=== PATIENT | female | born 1995 | race Caucasian/White ===

== ENCOUNTER 2021-09-12 12:37 | Outpatient (CLI) | payer OTHER, SELFPAY ==
--- NOTE | 2021-09-12 13:00 | CRLHL7_ITS ---
For Patients: As a result of the Century Cures Act, medical imaging exams and procedure reports are released immediately into your electronic medical record. You may view this report before your referring provider. If you have questions, please contact your health care provider. CLINICAL HISTORY: First trimester screening. TECHNIQUE: Real time naqvi scale imaging of the fetus was performed using a transabdominal approach. FINDINGS: Sonographic imaging demonstrates a single living intrauterine gestation. The fetus demonstrates a regular cardiac rate measuring 169 beats per minute. The crown rump length measurement of 7.3 cm corresponds to a gestation of 13 weeks 3 days which is concordant with the earlier dating ultrasound. A nuchal translucency measurement of 1.8 mm was obtained for screening purposes. IMPRESSION: Nuchal translucency measurement obtained for first trimester screen. Dictated by David Gonsalves MD @ 09/12/2021 2:17:17 PM (Electronically Signed)
== END 2021-09-12 12:38 | disposition home or self-care (01) ==
LOC: US 12:38
PROVIDERS: Visit Provider Physician Assistant
DX: Z34.91 Encounter for supervision of normal pregnancy, unspecified, first trimester (principal); Z13.79 Encounter for other screening for genetic and chromosomal anomalies
CPT/HCPCS: 36415; 76801; 76813; 84163; 84702

== ENCOUNTER 2021-11-07 10:00 | Outpatient (CLI) | payer OTHER, SELFPAY ==
--- NOTE | 2021-11-07 10:15 | CRLHL7_ITS ---
For Patients: As a result of the Century Cures Act, medical imaging exams and procedure reports are released immediately into your electronic medical record. You may view this report before your referring provider. If you have questions, please contact your health care provider. INDICATION: 2nd trimester anatomical survey. TECHNIQUE: Ultrasound OB pelvis transabdominal. Real-time naqvi-scale imaging of the fetus was performed as well as color Doppler and spectral Doppler analysis of the umbilical artery. COMPARISON: None. FINDINGS: Sonographic imaging demonstrates a single living intrauterine gestation. Fetus demonstrates a regular cardiac rate of 154 beats per minute. Fetus is in multiple positions during exam. The placenta lies anterior without evidence of placenta previa. Placenta tip to internal os measures 4.6 cm. Three-vessel cord with eccentric placental insertion. The cervix is closed measuring 4.1 cm in length. Amniotic fluid volume appears normal. Single deepest pocket measures 3.3 cm. Biometry: Biparietal diameter: 4.9 cm, 20 week 5 day, 49th percentile. Head circumference: 18.6 cm, 21 weeks 0 day, 52 percentile. Abdominal circumference: 16.4 cm, 21 week 3 day, 69th percentile. Femoral length: 3.7 cm, 21 weeks 6 days, 81st percentile. The composite ultrasound gestational age is calculated at 21 weeks 0 day with an estimated sonographic due date of 03/20/2022. The weight is estimated at 435 grams, the 88th percentile. On anatomic survey, there is a normal appearance of the cerebral ventricles, cisterna magna and cerebellum. The nose, lips, and facial profile appear normal. The cervical, thoracic and lumbar spines are well visualized and appear normal. Unable to obtain optimal heart views due to position and maternal body habitus. diaphragm, stomach, kidneys and bladder appear normal. There is a normal three-vessel cord with eccentric placenta insertion. The four extremities appear normal. IMPRESSION: 1.Single viable intrauterine . 2. Unable to obtain optimal heart views due to position and maternal body habitus. 3.No intrinsic abnormalities noted on anatomic survey. Dictated by Marlon Bernal MD @ 11/07/2021 11:36:50 AM (Electronically Signed)
== END 2021-11-07 10:01 | disposition home or self-care (01) ==
LOC: US 10:01
PROVIDERS: Visit Provider Obstetrics & Gynecology
DX: Z34.92 Encounter for supervision of normal pregnancy, unspecified, second trimester (principal); Z3A.21 21 weeks gestation of pregnancy
CPT/HCPCS: 76805

== ENCOUNTER 2021-12-05 08:54 | Outpatient (CLI) | payer OTHER, SELFPAY ==
--- NOTE | 2021-12-05 09:15 | CRLHL7_ITS ---
For Patients: As a result of the Century Cures Act, medical imaging exams and procedure reports are released immediately into your electronic medical record. You may view this report before your referring provider. If you have questions, please contact your health care provider. INDICATION: HEART VIEWS NOT ADEQUATELY SEEN AT [facility] COMPARISON: 11/07/2021 TECHNIQUE: Real-time naqvi-scale imaging of the pelvis was performed. FINDINGS: Normal RVOT, LVOT, three-vessel view and four-chamber heart. heart rate 148 beats per minute. Placenta anterior. position vertex. Amniotic fluid normal with single deepest pocket 3.9 cm. Estimated weight is 776 grams, 60th percentile. Sonographic gestational age 25 weeks 1 day and sonographic due date 03/19/2022. BPD 59th percentile. Head circumference 51st percentile. Abdominal circumference 55th percentile. Femur length 49th percentile. IMPRESSION: Normal heart views. Dictated by David Gonsalves MD @ 12/05/2021 11:17:34 AM (Electronically Signed)
== END 2021-12-05 08:55 | disposition home or self-care (01) ==
LOC: US 08:55
PROVIDERS: Visit Provider Advanced Practice Midwife
DX: O36.8320 Maternal care for abnormalities of the fetal heart rate or rhythm, second trimester, not applicable or unspecified (principal); Z3A.25 25 weeks gestation of pregnancy
CPT/HCPCS: 76816

== ENCOUNTER 2022-01-02 10:21 | Outpatient (CLI) | payer OTHER, SELFPAY ==
[2022-01-03 16:53] LABS: Rapid Plasma Reagin (RPR) Non Reactive (Non Reactive)
== END 2022-01-02 10:22 | disposition home or self-care (01) ==
PROVIDERS: Visit Provider Obstetrics & Gynecology
DX: Z34.93 Encounter for supervision of normal pregnancy, unspecified, third trimester (principal); Z3A.30 30 weeks gestation of pregnancy
CPT/HCPCS: 86592; 86850

== ENCOUNTER 2022-02-17 16:23 | Outpatient (CLI) | payer OTHER, SELFPAY ==
[2022-02-18 13:31] LABS: Strep B DNA Probe NEGATIVE (Negative)
[2022-02-18 13:43] LABS: Strep B Pen/Amox Allergy Yes
== END 2022-02-17 16:24 | disposition home or self-care (01) ==
LOC: NFLDREF 16:25
PROVIDERS: Visit Provider Physician Assistant
DX: Z34.93 Encounter for supervision of normal pregnancy, unspecified, third trimester (principal); Z3A.35 35 weeks gestation of pregnancy
CPT/HCPCS: 87081; 87653

== ENCOUNTER 2022-02-24 16:56 | Outpatient (CLI) | payer OTHER, SELFPAY ==
--- NOTE | 2022-02-24 17:00 | CRLHL7_ITS ---
For Patients: As a result of the Century Cures Act, medical imaging exams and procedure reports are released immediately into your electronic medical record. You may view this report before your referring provider. If you have questions, please contact your health care provider. INDICATION: Obesity. COMPARISON: OB ultrasound 12/05/2021. TECHNIQUE: Real time naqvi scale imaging of the fetus was performed without non-stress testing. FINDINGS: Sonographic imaging demonstrates a single living intrauterine gestation. The fetus demonstrates a regular cardiac rate of 163 beats per minute. The fetus has a cephalic orientation. The placenta lies anteriorly. Amniotic fluid volume appears normal with single deepest pocket measuring 6.0 cm (2/2). The fetus was active (2/2). There was normal flexion and extension of the trunk and extremities (2/2). The fetus demonstrated normal breathing movements (2/2). IMPRESSION: Normal biophysical profile score 8 out of 8. Dictated by Trinh Gudino MD @ 02/24/2022 8:42:32 PM (Electronically Signed)
== END 2022-02-24 16:57 | disposition home or self-care (01) ==
LOC: US 16:56
PROVIDERS: Visit Provider Physician Assistant
DX: O99.210 Obesity complicating pregnancy, unspecified trimester (principal)
CPT/HCPCS: 76819

== ENCOUNTER 2022-03-06 10:33 | Outpatient (CLI) | payer OTHER, SELFPAY ==
[2022-03-06 15:21] LABS: Aspartate Amino Transferase* 21 U/L (12-35); Creatinine* 0.5 mg/dL (0.5-1.5); Estimated Glomerular Filt Rate 133 ml/min
[2022-03-06 15:22] LABS: Alanine Aminotransferase* 15 U/L (4-35); Uric Acid* 6.3 mg/dL (2.2-8.4)
[2022-03-06 15:24] LABS: Total Protein Urine 13 mg/dL
[2022-03-06 15:27] LABS: Creatinine Urine 70.9 mg/dL
== END 2022-03-06 10:34 | disposition home or self-care (01) ==
PROVIDERS: Visit Provider Obstetrics & Gynecology
DX: O14.93 Unspecified pre-eclampsia, third trimester (principal); Z3A.38 38 weeks gestation of pregnancy
CPT/HCPCS: 76816; 76819; 82565; 82570; 84156; 84450; 84460; 84550

== ENCOUNTER 2022-03-08 08:48 | Inpatient (IN) | payer OTHER, SELFPAY ==
[2022-03-08] VITALS (61 sets, daily range): BP systolic 90–176; BP diastolic 48–116; PULSE 65–176; RESP 16; TEMP 36.6–37.2; O2SAT 91–100; BMI 41.1
[2022-03-08 08:10] LABS: Amnisure Rom* POSITIVE
[2022-03-08 08:47] LABS: Hemoglobin* 12.4 gm/dL (12.0-16.0); Mean Corpuscular HGB Conc 34 gm/dL (32-36); Mean Corpuscular Hemoglobin 29 pg (26-34); Mean Corpuscular Volume 86 fL (80-100); Platelet Count* 188 K/uL (140-440); Red Blood Count 4.29 m/uL (4.00-5.20); White Blood Count* 8.87 K/uL (4.50-11.00)
[2022-03-08 08:49] LABS: Slide Review Reflex No
[2022-03-08 09:08] LABS: Alanine Aminotransferase* 16 U/L (4-35); Blood Urea Nitrogen* 10 mg/dL (5-24); Creatinine* 0.5 mg/dL (0.5-1.5); Est. Creatinine Clearance* 161.02; Estimated Glomerular Filt Rate 133 ml/min
[2022-03-08 09:09] LABS: Aspartate Amino Transferase* 23 U/L (12-35)
[2022-03-08 09:14] LABS: Basophils Absolute Auto 0.04 K/uL (0.00-0.30); Basophils Percent Auto 0.5 % (0.0-3.0); Eosinophils Absolute Auto 0.05 K/uL (0.00-0.50); Eosinophils Percent Auto 0.6 % (0.0-7.0); Immature Granulocytes Abs Auto 0.06 K/uL (0.00-0.30); Immature Granulocytes Pct Auto 0.7 %; Lymphocytes Absolute Auto 2.15 K/uL (0.90-2.90); Lymphocytes Percent Auto 24.3 % (20-44); Monocytes Percent Auto 9.5 % (0.0-11.0); Neutrophils Absolute Auto 5.72 K/uL (1.7-7.0); Neutrophils Percent Auto 64.4 % (42.0-72.0); RDW Coefficient of Variation % 12.8 % (11.5-15.5)
[2022-03-08 09:26] LABS: Creatinine Urine 108.4 mg/dL; Total Protein Urine 15 mg/dL
[2022-03-08 09:42] LABS: SARS PCR* Negative SARS-CoV-2 (Negative)
--- NOTE | 2022-03-08 11:13 | P.LDBA_ITS ---
Subjective History of Present Illness Date Seen: 03/08/22 Narrative: Patient is being admitted to Labor and Delivery after SROM for dleivery. She is a 26 year old at weeks gestation. Her full history and physical was dictated by Dr. Kaur on 03/06/22. Please see this for details. Patient states that at around 4 am this morning she felt a watery like discharge, arrived at labor and delivery AmniSure performed and found positive. Recommendation for admission was made and patient in agreement. Patient also presents with elevated blood pressures, she had elevated blood pressures in the clinic on 03/06/22, gestational hypertension diagnosis given. Specific Issues/Plans . Spouse: Morgan. Son: Lico. Baby: Boy! Naveed. Blood type: O negative. 1. History of depression, stable on no medication 2. History of asthma, currently on no medication 3. Rh negative.? RhoGam at 28 weeks. 01/02/22 4. initial BMI 38+: * hgbA1C: 4.9% * Normal 1 hour glucose screen on 01/02/2022. * weekly NST starting at 36 wks due to obesity. * 5. Anatomy u/s 11/07/2021: 88%ile, 3.3 SDP, concentric placental insertion, unable to visualize heart d/t baby's position and maternal habitus * 12/05/2021: Normal cardiac anatomy. Vtx, SDP: 3.9cm.? Estimated weight:? 776 g, 1 lb 11 oz, 60%.? BPD 59%, HC 51%, AC 55%, FL 49%.? * 6. GERD * Famitodine 20 mg b.i.d. used initially * Omeprazole 40 mg daily prescribed 01/02/2022. OB - H&P: Exam Physical Exam: Vital signs: Temp Pulse Resp BP 98 F 87 16 141/70 H 03/08/22 07:16 03/08/22 10:28 03/08/22 07:16 03/08/22 10:28 Narrative: VITAL SIGNS: As noted above. GENERAL APPEARANCE: Alert, cooperative female in no acute distress. MOOD & AFFECT: Normal. ABDOMEN: Gravid, nontender. : 2.5 cm/60%/-2 as per nursing at 7:00 a.m. EXTREMITIES: Bilateral pitting edema +1 Well perfused. Nontender. OB - Problem Based A/P Additional Plan (1) SROM (spontaneous rupture of membranes): Status: Acute Plan: GBS negative, no need for antibiotic prophylaxis. Offered to start IV oxytocin, patient would like to wait a little bit. She is experiencing irregular uterine contractions at this moment. Will continue expected management. Candidate for analgesia of choice. (2) Gestational hypertension: Status: Acute Plan: Admission preeclampsia labs negative, mildly elevated blood pressures will continue to monitor. Continuos monitoring.
[2022-03-08] MEDS: LACTATED RINGERS 1000 ML 1,000 ML 1200 ML IV (13:45)
[2022-03-08] MEDS: LIDOCAINE 2% (PF) 5 ML VIAL EPIDURAL (14:45)
[2022-03-08] MEDS: ROPIVACAINE 0.2% 100 ml 100 ML 12 MG EPIDURAL (14:46)
--- NOTE | 2022-03-08 14:49 | PM.ANBPRC ---
[facility] [place] Medical History (Updated 03/08/22 @ 11:18 by Kirstie Tierney MD) Asthma Depression Left hip pain Vaginal delivery (06/11/19) Social History (Updated 10/13/21 @ 08:19 by Marilyn Kaur MD) Narrative: , [id number] mom Smoking Status: Never smoker Meds Home Medications and Allergies Home Medications Medication Instructions Recorded Confirmed Type 103-folic acid 400 tab PO 10/10/21 03/06/22 History mcg-omeg3 32.5 mg-dha-fish oil chew tablet ( with DHA and Folic Acid) Allergies Allergy/AdvReac Type Severity Reaction Status Date / Time nickel Allergy Unknown Rash Verified 03/06/22 08:56 Penicillin Allergy Unknown Childhood Uncoded 03/06/22 08:56 reaction Results Labs Labs: Laboratory Results - last 24 hr 03/08/22 03/08/22 03/08/22 07:30 08:22 08:40 WBC 8.87 RBC 4.29 Hgb 12.4 Hct 37.0 MCV 86 MCH 29 MCHC 34 RDW Coeff of Moises 12.8 Plt Count 188 Neut % (Auto) 64.4 Lymph % (Auto) 24.3 [place] % (Auto) 9.5 Eos % (Auto) 0.6 Baso % (Auto) 0.5 Neut # (Auto) 5.72 Lymph # (Auto) 2.15 [place] # (Auto) 0.80 Eos # (Auto) 0.05 Baso # (Auto) 0.04 BUN Creatinine Estimated Creat Clear Estimated GFR AST ALT Urine Creatinine 108.4 Protein/Creatinin Ratio 0.10 Urine Total Protein 15 Membrane Rupture POSITIVE SARS-CoV-2 (PCR) Blood Type Antibody Screen 03/08/22 03/08/22 03/08/22 08:40 08:40 08:56 WBC RBC Hgb Hct MCV MCH MCHC RDW Coeff of Moises Plt Count Neut % (Auto) Lymph % (Auto) [place] % (Auto) Eos % (Auto) Baso % (Auto) Neut # (Auto) Lymph # (Auto) [place] # (Auto) Eos # (Auto) Baso # (Auto) BUN 10 Creatinine 0.5 Estimated Creat Clear 161.02 Estimated GFR 133 AST 23 ALT 16 Urine Creatinine Protein/Creatinin Ratio Urine Total Protein Membrane Rupture SARS-CoV-2 (PCR) Negative SARS-CoV-2 Blood Type O Negative Antibody Screen NEGATIVE Vital Signs Vital Signs: Last Vital Signs Temp 98.3 F 03/08/22 11:38 Pulse 80 03/08/22 14:48 Resp 16 03/08/22 07:16 BP 132/79 03/08/22 14:48 Pulse Ox 99 03/08/22 14:45 Weight: 115.666 kg Height: 167.64 cm Anesthesia Procedures Epidural Insertion Patient Location: OB Start Time: 14:30 Stop Time: 15:00 Start Date: 03/08/22 Stop Date: 03/08/22 Reason for Block: primary anesthetic Patient Position: sitting Performed By: Maykel Taylor Preanesthetic Checklist: IV checked, risks and benefits discussed, surgical consent, monitors and equipment checked, pre-op evaluation, timeout performed and anesthesia consent Prep: chlorhexidine gluconate Monitoring: blood pressure monitoring, property assessment monitor, continuous pulse oximetry and heart rate Approach: midline Vertebral Space: lumbar (1-5) Needle Type: Tuohy needle Injection Technique: continuous catheter (catheter) Needle gauge: 17 Needle Length (cm): 10 cm Needle Insertion Depth (cm): 5 Catheter Gauge: 19 Catheter Type: multi-orifice Catheter at skin depth (cm): 10 Test Dose Result: negative and lidocaine 1.5% with epinephrine 1 to 200,000
--- NOTE | 2022-03-08 15:46 | P.OBPN_ITS ---
Subjective Time Seen by Provider: 15:46 Date Seen: 03/08/22 Narrative: Feeling comfortable with epidural. Objective Exam: Cervix: 5 cm/90%/vertex/-1 NST: 140 beats per minute/positive accelerations/sporadic variable decelerations/moderate variability/regular uterine contractions. Vital Signs: Last Vital Signs Temp 98.9 F 03/08/22 13:46 Pulse 73 03/08/22 15:45 Resp 16 03/08/22 07:16 BP 112/55 L 03/08/22 15:45 Pulse Ox 91 03/08/22 15:10 Pelvic Exam Dilation (cm): Five Effacement (%): 80 Station: -1 Contractions Monitor mode: External Contraction pattern: Regular Contraction intensity: Mild Assessment Station: -1 Amniotic Membrane Status: SROM Status: Category ll On [employer] Variability: Moderate (6-25) Monitor Accelerations: Present Monitor Decelerations: Variable Tracing Comments: Non recurrent variable deceleration Plan Plan: Patient accepts starting IV oxytocin. Epidural was recently placed. Blood pressures had remained elevated only mildly, no severe range blood pressures
[2022-03-08] MEDS: OXYTOCIN 30 unit/500 ML in NS 30 UNIT/500 ML BAG IVPB (15:51)
[2022-03-08] MEDS: PHENYLEPHRINE 100 MCG/ML SYRINGE IVP (16:22)
[2022-03-08] MEDS: LACTATED RINGERS 1000 ML 1,000 ML 125 ML IV (18:40)
--- NOTE | 2022-03-08 19:57 | PM.OBPRCVD ---
Procedure Delivery date: 03/08/22 Procedure Done: Global Events: Gestational Hypertension Intrapartal Events: Labor Augmentation Induction method: per pitocin protocol Delivery monitor: external FHT Route of delivery: Episiotomy description: None Laceration description: Perineal - 2nd Degree Delivery repair: Vicryl Estimated blood loss (mL): 100 Anesthesia type: Epidural Disposition: floor Narrative: The patient is a 26 year-old G 2 P 2002 admitted on 03/08/2022 at 38 Weeks, 0 Days gestation for delivery after SROM.? Cervical exam on admission was 2.5 cm/60 % effaced/-2 station with membranes ruptured in vertex presentation.? Contractions were every 5-7 minutes.? heart rate demonstrated baseline 140 bpm with moderate variability, positive accelerations, negative decelerations; a category 1 tracing.? SROM occurred at 0430 with clear fluid. ? Labor Analgesia:? Epidural ? Pitocin:? Yes ? Labor onset:? 14 30 ? Complete:? 190 ? Pushing:? 1923 ? heart tones during second stage were category 1. ? At 1937 a viable male delivered in vertex EARL presentation over intact perineum via spontaneous vaginal delivery.? was placed on maternal abdomen.? Cord was clamped and cut after a 30-60 second delay.? Nose and mouth were bulb suctioned.? weight pending.? 9 at 1 minute and 9 at 5 minutes.? Shoulder dystocia: No.? Nuchal cord: No. ? Placenta delivered spontaneously and complete at 1941 with a 3 vessel cord. ? Mother and infant were stable after delivery. ? Lacerations:? Second-degree perineal, repaired with Vicryl 3-0 and Vicryl 4-0. ? Blood loss: 100 mL. Blood loss measurement type: QBL ? Sponge and needles counts are correct. Infant Gender: Male presentation: vertex
[2022-03-09 01:00] VITALS: BP 115/78; PULSE 82; RESP 16; TEMP 36.5; O2SAT 98
[2022-03-09 04:00] VITALS: BP 119/74; PULSE 85; RESP 15; TEMP 36.6; O2SAT 98
[2022-03-09 07:32] LABS: Hemoglobin* 11.6 gm/dL (12.0-16.0)
[2022-03-09 08:07] VITALS: BP 131/86; PULSE 81; RESP 16; TEMP 36.5
--- NOTE | 2022-03-09 08:49 | P.DS_ITS ---
DS: Providers Provider Time Seen by Provider: 08:00 Date Seen: 03/09/22 Date of admission: 03/08/22 08:48 Primary care physician: Not a Local Provider Admitting Clinician: Kirstie Tierney MD Attending Physician on discharge: Kirstie Tierney MD Date of Discharge: 03/09/22 DS: Diagnosis Discharge Diagnosis (1) GERD (gastroesophageal reflux disease): Status: Acute (2) Depression: Status: Acute (3) Asthma: Status: Acute (4) Obesity: Status: Acute Exam Narrative: Exam Narrative: Physical exam: General: No acute distress Psych: Alert and oriented x3, full affect HEENT: Normocephalic, atraumatic Neck: No cervical adenopathy, no thyromegaly Heart: Regular rate and rhythm, no murmur rub or gallop Lungs: Clear to auscultation bilaterally Abdomen: Normoactive bowel sounds, soft, no tenderness, rebound, or guarding, no masses. Uterus firm 3 cm below umbilicus Lower extremities: No edema or erythema Pelvic exam: Scant vaginal bleeding on pad. Const: Vital Signs, click to edit/add: Vital Signs - 24 hr 03/08/22 10:28 03/08/22 11:38 03/08/22 11:38 Temperature 98.3 F Pulse Rate 87 103 H Pulse Rate [Blood Pressure Cuff] Respiratory Rate Blood Pressure 141/70 H 134/74 Blood Pressure [Le ft Arm] Pulse Oximetry Oxygen Delivery [facility] 03/08/22 13:47 03/08/22 14:30 03/08/22 14:35 Temperature Pulse Rate 88 Pulse Rate [Blood Pressure Cuff] Respiratory Rate Blood Pressure 116/72 Blood Pressure [Le ft Arm] Pulse Oximetry 100 100 Oxygen Delivery [facility] 03/08/22 14:39 03/08/22 14:40 03/08/22 14:45 Temperature Pulse Rate 87 Pulse Rate [Blood Pressure Cuff] Respiratory Rate Blood Pressure 137/80 Blood Pressure [Le ft Arm] Pulse [facility]ximetry 99 99 [facility] 03/08/22 14:46 03/08/22 14:48 03/08/22 14:50 Temperature Pulse Rate 85 80 Pulse Rate [Blood Pressure Cuff] Respiratory Rate Blood Pressure 136/72 132/79 Blood Pressure [Le ft Arm] Pulse Oximetry 98 Oxygen Delivery [facility] 03/08/22 14:51 03/08/22 14:53 03/08/22 14:54 Temperature Pulse Rate 82 81 139 H Pulse Rate [Blood Pressure Cuff] Respiratory Rate Blood Pressure 122/62 103/63 99/65 Blood Pressure [Le ft Arm] Pulse [facility]ximetry [facility] 03/08/22 14:57 03/08/22 13:46 03/08/22 14:59 Temperature 98.9 F Pulse Rate 78 Pulse Rate [Blood Pressure Cuff] Respiratory Rate Blood Pressure 105/55 L 100/56 L Blood Pressure [Le ft Arm] Pulse Oximetry 99 [facility] 03/08/22 15:01 03/08/22 15:02 03/08/22 15:04 Temperature Pulse Rate 85 86 87 Pulse Rate [Blood Pressure Cuff] Respiratory Rate Blood Pressure 112/58 L 103/56 L 96/52 L Blood Pressure [Le ft Arm] Pulse Oximetry 99 [facility] 03/08/22 15:07 03/08/22 15:10 03/08/22 15:13 Temperature Pulse Rate 87 76 Pulse Rate [Blood Pressure Cuff] Respiratory Rate Blood Pressure 100/57 L 103/59 L Blood Pressure [Le ft Arm] Pulse Oximetry 100 91 [facility] 03/08/22 15:15 03/08/22 15:18 03/08/22 15:26 Temperature Pulse Rate 86 75 67 Pulse Rate [Blood Pressure Cuff] Respiratory Rate Blood Pressure 98/63 101/50 L 120/65 Blood Pressure [Le ft Arm] Pulse [facility]ximetry [facility] 03/08/22 15:30 03/08/22 15:35 03/08/22 15:45 Temperature Pulse Rate 78 68 73 Pulse Rate [Blood Pressure Cuff] Respiratory Rate Blood Pressure 112/59 L 107/55 L 112/55 L Blood Pressure [Le ft Arm] Pulse [facility]ximetry [facility] 03/08/22 16:00 03/08/22 16:00 03/08/22 16:03 Temperature 98.2 F Pulse Rate 176 H 79 Pulse Rate [Blood Pressure Cuff] Respiratory Rate Blood Pressure 176/116 H 107/53 L Blood Pressure [Le ft Arm] Pulse [facility]ximetry [facility] 03/08/22 16:17 03/08/22 16:32 03/08/22 16:47 Temperature Pulse Rate 75 82 86 Pulse Rate [Blood Pressure Cuff] Respiratory Rate Blood Pressure 90/48 L 95/51 L 105/59 L Blood Pressure [Le ft Arm] Pulse Oximetry Oxygen Delivery [facility] 03/08/22 17:18 03/08/22 17:32 03/08/22 17:48 Temperature Pulse Rate 75 80 81 Pulse Rate [Blood Pressure Cuff] Respiratory Rate Blood Pressure 117/59 L 117/56 L 115/68 Blood Pressure [Le ft Arm] Pulse Oximetry Oxygen Delivery [facility] 03/08/22 18:02 03/08/22 18:07 03/08/22 18:17 Temperature 98.6 F Pulse Rate 82 75 Pulse Rate [Blood Pressure Cuff] Respiratory Rate Blood Pressure 117/69 108/59 L Blood Pressure [Le ft Arm] Pulse Oximetry Oxygen Delivery [facility] 03/08/22 18:32 03/08/22 17:05 03/08/22 18:47 Temperature 98.7 F Pulse Rate 81 71 Pulse Rate [Blood Pressure Cuff] Respiratory Rate Blood Pressure 110/59 L 114/56 L Blood Pressure [Le ft Arm] Pulse Oximetry Oxygen Delivery [facility] 03/08/22 19:03 03/08/22 19:18 03/08/22 19:47 Temperature Pulse Rate 82 65 88 Pulse Rate [Blood Pressure Cuff] Respiratory Rate Blood Pressure 117/66 109/62 132/60 Blood Pressure [Le ft Arm] Pulse Oximetry Oxygen Delivery [facility] 03/08/22 20:04 03/08/22 20:17 03/08/22 20:32 Temperature Pulse Rate 83 76 75 Pulse Rate [Blood Pressure Cuff] Respiratory Rate Blood Pressure 126/67 127/62 126/60 Blood Pressure [Le ft Arm] Pulse Oximetry Oxygen Delivery [facility] 03/08/22 20:47 03/08/22 21:02 03/08/22 21:17 Temperature Pulse Rate 76 69 79 Pulse Rate [Blood Pressure Cuff] Respiratory Rate Blood Pressure 130/58 L 131/56 L 128/58 L Blood Pressure [Le ft Arm] Pulse Oximetry Oxygen Delivery [facility] 03/08/22 21:32 03/09/22 01:00 03/09/22 04:00 Temperature 97.7 F 97.9 F Pulse Rate 70 Pulse Rate [Blood Pressure Cuff] 82 85 Respiratory Rate 16 15 Blood Pressure 119/60 Blood Pressure [Le ft Arm] 115/78 119/74 Pulse Oximetry 98 98 Oxygen Delivery Me [facility]od Room Air Room Air 03/09/22 08:07 Temperature 97.7 F Pulse Rate Pulse Rate [Blood Pressure Cuff] 81 Respiratory Rate 16 Blood Pressure Blood Pressure [Le ft Arm] 131/86 Pulse Oximetry Oxygen Delivery Me [facility]od Room Air OB - DS: Summary Hospital Course Hospital Course: The patient is a 26 year old G 2 P 2002 at 38 weeks gestation that was admitted to the Center on 03/08/22 for SROM. She had an uncomplicated vaginal. She delivered a viable male . She is breast feeding. the patient has done well. Dispo: Patient is PPD#1. Need the following milestones: none. Anticipate di scharge PPD#1. Stable and appropriate for discharge. [place] Infant Gender: Male Time Spent with Patient Time attestation: Total time spent providing and/or coordinating discharge services: Discharge Plan Discharge Disposition: Home, Self-Care Date of Admission: 03/08/22 08:48 Attending Provider on Discharge: Sadie Lizarraga MD Primary Care Provider: Provider,Not a Local Condition: Stable Anticipated Discharge Date/Time: 03/09/22 08:39 Discharge Medications: New acetaminophen 500 mg Tablet 500 mg PO Q6H PRN (Reason: pain/fever) 30 Days Qty: 60 0RF ibuprofen 600 mg Tablet 600 mg PO Q6H PRN30 Days Qty: 60 0RF simethicone 80 mg Tablet,Chewable 80 - 160 mg PO Q4H PRN (Reason: gas) 30 Days Qty: 60 0RF docusate calcium 240 mg capsule 240 mg PO DAILY Qty: 60 0RF Continued omeprazole 40 mg capsule,delayed release(DR/EC) 40 mg PO QDAY Qty: 90 2RF with DHA-Folic Acid 400-32.5 mcg-mg tablet,chewable PO hydroxyzine pamoate [Vistaril] 25 mg capsule 25 mg PO QHS Qty: 30 2RF Discharge Orders: Discharge Order (Routine); Ordered 03/09/22 Ordered By: Sadie Lizarraga Patient Education: Vaginal Delivery (DC) Activity Level: Activity as Tolerated Activity Detail: Pelvic rest until cleared at visit Follow Up Appointments: Provider,Not a Local [Primary Care Provider] - Sadie Lizarraga MD [Staff Physician] - Forms: [facility] Info Instructions
[2022-03-09] MEDS: LANOLIN CREAM 1 APPLIC TOPICAL (11:34)
[2022-03-09 11:35] VITALS: BP 128/85; PULSE 81; RESP 18; TEMP 36.4
[2022-03-09 16:37] VITALS: BP 129/85; PULSE 96; RESP 18; TEMP 36.8
[2022-03-09 19:54] VITALS: BP 114/72; PULSE 76; RESP 16; TEMP 36.6; O2SAT 98
== END 2022-03-09 20:00 | disposition home or self-care (01) | DRG 560 ==
LOC: OB OUT 08:51 → OB 08:51
PROVIDERS: Admitting Provider Obstetrics & Gynecology; Visit Provider Obstetrics & Gynecology
DX: O13.4 Gestational [pregnancy-induced] hypertension without significant proteinuria, complicating childbirth (principal); O70.1 Second degree perineal laceration during delivery; K21.9 Gastro-esophageal reflux disease without esophagitis; F32.A Depression, unspecified; J45.909 Unspecified asthma, uncomplicated; E66.9 Obesity, unspecified; O99.344 Other mental disorders complicating childbirth; O99.214 Obesity complicating childbirth; Z37.0 Single live birth; Z3A.38 38 weeks gestation of pregnancy
CPT/HCPCS: 01967; 36415; 82565; 82570; 84112; 84156; 84450; 84460; 84520; 85018; 85025; 85027; 85461; 86850; 86900; 86901; 87635; 99213; A9270; J2370; J2791; J2795; J7120

== ENCOUNTER 2022-03-20 14:30 | Outpatient (CLI) | payer OTHER, SELFPAY ==
--- NOTE | 2022-03-20 15:00 | CRLHL7_ITS ---
For Patients: As a result of the Century Cures Act, medical imaging exams and procedure reports are released immediately into your electronic medical record. You may view this report before your referring provider. If you have questions, please contact your health care provider. INDICATION: Leg pain and swelling. PAIN AND SWELLING BEHIND RIGHT KNEE, 2 WEEKS , THROMBOPHLEBITIS NOTED AT OUTSIDE FACILITY TECHNIQUE: Ultrasound venous duplex lower right extremity. Compression venous exam was performed using naqvi-scale, color Doppler, and spectral Doppler analysis. COMPARISON: None. FINDINGS: Deep veins: Sonographic imaging demonstrates the right common femoral, deep femoral, superficial femoral, popliteal, posterior tibial and the contralateral left common femoral veins to be fully compressible with normal color Doppler blood flow. Superficial veins: Superficial thrombus at the palpable area of concern in the posterior lateral right knee. No popliteal cyst. IMPRESSION: No deep venous thrombus. Superficial thrombus at the palpable area of concern in the posterior lateral right knee. Dictated by David Dotson MD @ 03/20/2022 3:56:25 PM (Electronically Signed)
== END 2022-03-20 14:31 | disposition home or self-care (01) ==
LOC: US 14:31
PROVIDERS: Visit Provider Physician Assistant
DX: M79.604 Pain in right leg (principal); R22.41 Localized swelling, mass and lump, right lower limb
CPT/HCPCS: 93971

== ENCOUNTER 2023-12-20 16:36 | Emergency (ER) | payer MEDICAID, SELFPAY ==
--- OUTSIDE RECORDS SUMMARY | 2023-12-20 16:37 | XMS_ITS ---
Author Organization [facility] Address [address] [place] [address] Care Team Providers Care Leather Coater Name Role Phone Unavailable Unavailable Unavailable Surgery Details Not on file Complications Check Surgery Details section. Procedure Estimated Blood Loss Check Surgery Details section. Procedure Findings Check Surgery Details section. Procedure Specimens Taken Check Surgery Details section.
--- OUTSIDE RECORDS SUMMARY | 2023-12-20 16:37 | XMS_ITS | Referral Summary ---
Author Organization [facility] Address [address] [place] [address] Care Team Providers Care Plate Filler Name Role Phone Unavailable Primary Care Provider Unavailabl e Source Comments Patient records contain information from all sites at [facility]. For routine questions regarding patient records, call [phone] during business hours, M-F 8:00 AM - 5:00 PM Central Time. Record requests for emergency care only can be directed to [phone] at any time.[facility] Social History Tobacco Use Types Packs/Day Years Used Date Smoking Tobacco: Never Assessed Nutrition Answer Date Recorded Nutrition: EVOO Fat Source Unknown 03/12 Nutrition: Servings of Fruits/Vegetables per Day Not on file 03/12/2022 Dental Answer Date Recorded Dental: Regular Dentist Unknown 03/12/19 23 Comments Unknown Sex and Gender Information Value Date Recorded Sex Assigned at Not on file Legal Sex Female 9:40 PM THAI MASSEUR Gender Identity Not on file Sexual Orientation Not on file Plan of Treatment Not on file Insurance [facility] [address] [address]
--- OUTSIDE RECORDS SUMMARY | 2023-12-20 16:37 | XMS_ITS | Clinical Summary ---
Author Organization [facility] Address [address] [place] [address] Care Team Providers Care Hvac R Tech Name Role Phone Unavailable Primary Care Provider Unavailabl e Source Comments Patient records contain information from all sites at [facility]. For routine questions regarding patient records, call [phone] during business hours, M-F 8:00 AM - 5:00 PM Central Time. 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 Gender Identity Not on file Sexual Orientation Not on file Plan of Treatment Health Maintenance Due Date Last Done Comments HIV Screening 1996 Hepatitis C Screening 1996 Depression Screening (Annual PHQ-2) 03/08/2023 COVID-19 Vaccine ( season) 2023 Influenza Vaccine (#1) 2023 , 01/02/2022, 01/22/2020, Additional history exists Cervical Cancer Screening 08/01/2024 08/01/2021 DTaP,Tdap,and Td Vaccines (10 - Td or Tdap) 01/17/2032 01/16/2022, 04/13/2019, 06/01/2018, Additional history exists Hepatitis B Vaccines Completed 04/23/1997, 04/23/1997, 1996, Additional history exists HPV Vaccines Completed 10/21/2009, 10/06, 12/30/2007, Additional history exists Pneumococcal vaccine (0-64 years) Aged Out No longer eligible based on patient's age to complete this topic Insurance MARAL H[place]SEIN [id number] [facility] [place] [id number] MARAL [place]SE[place] [id number]
--- OUTSIDE RECORDS SUMMARY | 2023-12-20 16:38 | XMS_ITS | Clinical Summary ---
Author Organization [facility] [employer] [facility] Address [place], [place] [address] Care Team Providers Care Utility Clerk Name Role Phone Provider, Non-Excellian Primary Care Provider Un available Yelena Regalado Unavailable [phone] Allergies Active Allergy Reactions Criticality Noted Date Comments Nickel Rash Low 06/10/2007 Nickel Rash 03/12/2022 Penicillins Rash 04/16/2016 Medications Medication Sig Dispensed Refills Start Date End Date Status vitamin-folic acid 1 mg ( RX) tablet/capsuleIndicat ions:Absent menses Take 1 tablet by mouth once daily. 100 tablet 4 2018 Active Active Problems No known active problems Immunizations Name Administration Dates Next Due DTP 10/03/2001,01/22/1998,1996 DTP-HIB 01/22/1998,04/23/1997,02/19/1997 ,1996 DTaP 10/03/2001 HPV 9 (Gardasil 9) 10/21/2009,12/30/2007, 008 Hepatitis A (Peds) 10/21/2009,10/28/2007 Hepatitis A, Unspecified 10/21/2009,10/28/2007 Hepatitis B, Unspecified 04/23/1997,1996,0 1996 Hib Conjugate, Unspecified 01/22/1998,1996 Human Papilloma Virus Vaccine 10/21/2009, 008,10/28/2007 Inactivated Polio Vaccine 10/03/2001 Influenza Virus, Unspecified 02/03/2016, 12/20/2014,12/08/2013,03/24/2012 ,12/30/2007,12/23/2006,02/04/2006, 5,02/12/2004,01/01/2003,01/10/2002,12/30/19 01 Influenza, IIV3 (Age 6-35 mos) 03/24/2012 Influenza, IIV3 (Age >=3 years) 12/30/19 08,12/23/2006,02/04/2006,01/19/2005 ,02/12/2004,01/01/2003,01/10/2002 Influenza, IIV4 02/03/2016,12/20/2014,12/08/2013 Influenza, IIV4 (=>6mos) MDV 12/05/2014 MMR 10/03/2001,10/22/1997 Meningococcal Vaccine (Menactra) 11/08/2014,10/07 Oral Polio Vaccine 04/23/1997,02/19/1997, 997 Polio Virus, Unspecified 10/03/2001 Tdap 06/01/2018,10/28/2007 Family History Medical History Relation Name Comments No Known Problems Maternal Grandmother He r mom and her maternal granmother both have had varicose leg veins. No Known Problems Mother Her mom an d her maternal granmother both have had varicose leg veins. Relation Name Status Comments Maternal Grandmother Mother Alive Son 1 Alive Son 2 Alive Social History Tobacco Use Types Packs/Day Years Used Date Smoking Tobacco: Never Smokeless Tobacco: Never Tobacco Cessation:Counseling Given: Yes Alcohol Use Standard Drinks/Week Comments Never 0 (1 standard drink = 0.6 oz pur e alcohol) Rarely PHQ-2 Answer Date Recorded PHQ-2 Score 0 2018 Sex and Gender Information Value Date Recorded Sex Assigned at Not on file Gender Identity Not on file Sexual Orientation Not on file Obstetrics History Last Filed Vital Signs Vital Sign Reading Time Taken Comments Blood Pressure 138/80 05/26/2023 9:53 AM CDT Pulse 75 05/26/2023 9:58 AM CDT Temperature 36.6 ??C (97.9 ??F) 05/26/2023 9:53 AM CD T Respiratory Rate 18 05/26/2023 9:53 AM CDT Oxygen Saturation 98% 05/26/2023 9:58 AM CDT Inhaled Oxygen Concentration - - Weight 104.8 kg (231 lb) 05/26/2023 9:53 AM CDT Height 167.6 cm (5' 6) 05/26/2023 9:53 AM CDT Body Mass Index 37.28 05/26/2023 9:53 AM CDT Plan of Treatment Health Maintenance Due Date Last Done Comments HIV for age 15-65 10/21/2011 Hepatitis C screening for age 18-79 2014 BMI (ht and wt on same day) for age 18+ 06/02/2019 06/01/2018, 07/06/2017, 04/16/2016 Depression screening for age 12+ 10/21/2019 2018, 07/06/2017 COVID-19 vaccine series (2023- season) 2023 Influenza for age 9-49 11/07/2023 6, 02/03/2016, 12/20/2014, Additional history exists Pap test for age 21-65 08/01/2024 08/01/2021, 2018 Tetanus booster 06/01/2028 06/01/2018, 10/28/2007 Tdap Completed 06/01/2018, 10/28/2007 Pneumococcal series for age 6-64 Aged Out No longer eligible based on patient's age to complete this topic Procedures Procedure Name Priority Date/Time Associated Diagnosis Comments COUNTY [employer] THIN PREP PAP SCREEN IMAGED Routine 08/01/2021 12:00 PM CDT from Last 3 Months or Most Recently Relevant to Health Maintenance Results * COUNTY DIRECTOR WELF[employer] THIN PREP PAP SCREEN IMAGED (08/01/2021 12:00 PM CDT) Case Report Gynecologic Cytology Report ? Case: [id number] ? Authorizing Provider: ??Kenya Maldonado PA-C ?Collected: ? 08/01/2021 1200 ? Ordering Location: ? [facility] ?Received: ?08/06/2021 0737 ? First Screen: ?Arie Jameson ? Specimen: ?COUNTY DIRECTOR WELFARE ThinPrep Vial Screening, Cervical/Vaginal ? 08/19/2021 2:12 PM CDT [facility] [employer] [facility] ENTRAL LABORATORY INTERPRETATION/ RESULT NEGATIVE FOR INTRAEPITHELIAL LESION OR MALIGNANCY (NIL) (none) 08/19/2021 2:12 PM CDT [facility] IMEN ADEQUACY Satisfactory for evaluation No endocervical component seen in a patient 08/19/2021 2:12 PM CDT [facility] ENTRAL LABORATORY HPV REQUEST HPV if ASCUS 08/19/2021 2:12 PM CDT [facility] EN[facility] Date of LMP 05/30/2021 08/19/2021 2:12 PM CDT [facility] EN[facility] Last Pap Date 12/08/2018 08/19/2021 2:12 PM CDT [facility] EN[facility] Last Pap Result NIL 2:12 PM CDT [facility] ENTRAL LABORATORY Menstrual Status 08/19/2021 2:12 PM CDT [facility] Additional Information 08/19/2021 2:12 PM CDT [facility] EN[facility] Comment: Interpreted at [facility] [employer] [facility], Central Laboratory - [address], [place] [address] Automated Review Successful 08/19/2021 2:12 PM CDT [facility] ENTRAL LABORATORY Comment:Specimen processed s uccessfully by automated textile machinery instructor device, ThinPrep Imaging System, [employer] Note The pap test is a screening technique, not a diagnostic procedure. It is used primarily to screen for squamous cancers and precursor lesions. Published studies have shown that it is subject to both false negative and false positive results. The pap test should not be used as the sole means to diagnose or exclude pre-malignant and malignant lesions. 08/19/2021 2:12 PM CDT [facility] ENTRAL LABORATORY Other (Cervical/Vagina l) 08/01/2021 12:00 PM CDT 08/06/2021 7:37 AM CDT June Erica ADHIKARI PATHOLOGY/CYTOLOGY [facility]-CENTRAL LABORATORY [address] [place] [address], from Last 3 Months or Most Recently Relevant to Health Maintenance Care Teams Utility Clerk Relationship Specialty Start Date End Date Provider, Non-Excellian . PCP - General 03/12/22 Yelena Regalado PA . Physician Cotton Picker 03/12/22
[2023-12-20 16:46] VITALS: BP 120/77; PULSE 82; RESP 18; TEMP 36.6; O2SAT 99; BMI 34.7
--- NOTE | 2023-12-20 17:53 | CRLHL7_ITS ---
For Patients: As a result of the Century Cures Act, medical imaging exams and procedure reports are released immediately into your electronic medical record. You may view this report before your referring provider. If you have questions, please contact your health care provider. INDICATION: Bleeding in early . TECHNIQUE: Ultrasound OB pelvis transvaginal. Real-time naqvi-scale imaging of the pelvis was performed. COMPARISON: None. FINDINGS: Intrauterine gestation: Single. heart activity (bpm): 131. [place]-rump length: 0.4 cm. Estimated ultrasound age: 6 weeks 1 day. SEVERIANO by ultrasound: August 13, 2024. Yolk sac: Normal. Perigestational hemorrhage: None. Ovaries and adnexa: Unremarkable. Suspicious pelvic fluid collections: None. IMPRESSION: Single viable intrauterine . No abnormalities seen. Dictated by Judah May MD @ 12/20/2023 7:16:44 PM (Electronically Signed)
--- OUTSIDE RECORDS SUMMARY | 2023-12-20 18:26 | XMS_ITS | Referral Summary ---
Author Organization [facility] Address [address] [place] [address] Care Team Providers Care Watch Repair Technician Name Role Phone Unavailable Primary Care Provider Unavailabl e Source Comments Patient records contain information from all sites at [facility]. For routine questions regarding patient records, call [phone] during business hours, M-F 8:00 AM - 5:00 PM Central Time. 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
--- OUTSIDE RECORDS SUMMARY | 2023-12-20 18:26 | XMS_ITS ---
Author Organization [facility] Address [address] [place] [address] Care Team Providers Care Field Artillery Senior Sergeant Name Role Phone Unavailable Unavailable Unavailable Surgery Details Not on file Complications Check Surgery Details section. Procedure Estimated Blood Loss Check Surgery Details section. Procedure Findings Check Surgery Details section. Procedure Specimens Taken Check Surgery Details section.
--- OUTSIDE RECORDS SUMMARY | 2023-12-20 18:26 | XMS_ITS | Clinical Summary ---
Author Organization [facility] Address [address] [place] [address] Care Team Providers Care Time Buyer Name Role Phone Unavailable Primary Care Provider Unavailabl e Source Comments Patient records contain information from all sites at [facility]. For routine questions regarding patient records, call [phone] during business hours, M-F 8:00 AM - 5:00 PM Central Time. 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
--- OUTSIDE RECORDS SUMMARY | 2023-12-20 18:27 | XMS_ITS | Clinical Summary ---
Author Organization [facility] & [facility] Address [place], [place] [address] Care Team Providers Care Cereal Supervisor Name Role Phone Provider, Non-Excellian Primary Care Provider Un available Yelena Regalado Unavailable [phone] Allergies Active Allergy Reactions Criticality Noted Date [...] Procedure Name Priority Date/Time Associated Diagnosis Comments WOODS [employer]OSS THIN PREP PAP SCREEN IMAGED Routine 08/01/2021 12:00 PM CDT from Last 3 Months or Most Recently Relevant to Health Maintenance Results * WOODS BOSS THIN PREP PAP SCREEN IMAGED (08/01/2021 12:00 PM CDT) Case Report Gynecologic Cytology Report ? Case: [id number] ? Authorizing Provider: ??Kenya Maldonado PA-C ?Collected: ? 08/01/2021 1200 ? Ordering Location: ? [facility] ?Received: ?08/06/2021 0737 ? First Screen: ?Arie Jameson ? Specimen: ?WOODS BOSS ThinPrep Vial Screening, Cervical/Vaginal ? 08/19/2021 2:12 PM CDT [facility] [employer] [facility] ENTRAL LABORATORY INTERPRETATION/ RESULT NEGATIVE FOR INTRAEPITHELIAL LESION OR MALIGNANCY (NIL) (none) 08/19/2021 2:12 PM CDT [facility] IMEN ADEQUACY Satisfactory for evaluation No endocervical component seen in a patient 08/19/2021 2:12 PM CDT [facility] ENTRAL LABORATORY HPV REQUEST HPV if ASCUS 08/19/2021 2:12 PM CDT [facility] ENTR[facility] LAB[facility]ATORY Date of LMP 05/30/2021 08/19/2021 2:12 PM CDT [facility] ENTRAL LABOR[facility]ORY Last Pap Date 12/08/2018 08/19/2021 2:12 PM CDT [facility] ENTRAL LAB[facility] Last Pap Result NIL 2:12 PM CDT [facility] ENTRAL LABORATORY Menstrual Status 08/19/2021 2:12 PM CDT [facility] ENTRAL LABORATORY Additional Information 08/19/2021 2:12 PM CDT [facility] ENTR[facility] LAB[facility]ATORY Comment: Interpreted at [facility], Central Laboratory - [address], [place] [address] Automated Review Successful 08/19/2021 2:12 PM CDT [facility] ENTRAL LABORATORY Comment:Specimen processed s uccessfully by automated general internal medicine physician device, ThinPrep Imaging System, [employer] Note The pap test is a [...] and malignant lesions. 08/19/2021 2:12 PM CDT [facility] EN[facility] LAB[facility] Other (Cervical/Vagina l) 08/01/2021 12:00 PM CDT 08/06/2021 7:37 AM CDT June Erica ADHIKARI PATHOLOGY/CYTOLOGY [facility]-CENTRAL LABORATORY [address] [place] [address], from Last 3 Months or Most Recently Relevant to Health Maintenance Care Teams Cereal Supervisor Relationship Specialty Start Date End Date Provider, Non-Excellian . PCP - General 03/12/22 Yelena Regalado PA . Physician Binder Stripper Hand 03/12/22
--- NOTE | 2023-12-20 18:37 | ED_ITS ---
HPI - General Adult General Chief complaint: OB/Uterine Contractions Stated complaint: 7 weeks , abdominal cramping Time Seen by Provider: 12/20/23 17:51 Source: patient Mode of arrival: ambulatory Limitations: no limitations History of Present Illness HPI narrative: 28-year-old female at around 7 weeks gestation via LMP presents today with cramping and vaginal discharge for 2 days. Cramping is fairly constant. She denies any fevers or chills. No nausea or vomiting. Discharge is a mucousy red when she wipes. She does not need to wear a pad. She denies any diarrhea or constipation. She denies any dysuria, increased urinary frequency or urgency. Patient is in a monogamous relationship. Blood type O-negative according to the patient. Previous pregnancies uncomplicated per the patient. She has a 1-year-old and a 4-year-old at home. Related Data Home Medications ?Medication ?Instructions ?Recorded ?Confirmed 12/20/23 Allergies Allergy/AdvReac Type Severity Reaction Status Date / Time nickel Allergy Unknown Rash Verified 12/07/22 11:00 Penicillin Allergy Unknown Childhood Uncoded 12/07/22 11:00 reaction Review of Systems Status of ROS: Reports: 10 or more systems reviewed and unremarkable except as noted in History and below [facility] Medical History Left hip pain ?M25.552 - Pain in left hip (ICD-10) Asthma ?J45.909 - Unspecified asthma, uncomplicated (ICD-10) Vaginal delivery (06/11/19) ?O80 - Encounter for full-term uncomplicated delivery (ICD-10) Depression ?F32.A - Depression, unspecified (ICD-10) Social History Narrative: , [id number] mom Smoking Status: Never smoker Do you use any of these nicotine containing products: None How often do you have a drink containing alcohol: never How often do you have six or more drinks on one occasion: Never AUDIT-C Alcohol total score: 0 Non-prescribed substance use: denies use Little interest or pleasure in doing things: not at all Feeling down, depressed, or hopeless: not at all service: No Exam Narrative: Exam Narrative: Well-nourished well-developed patient in no acute distress. Alert and oriented. Answers questions appropriately. Mood and affect are appropriate. Thoughts are goal oriented and rational. No tangential or magical thinking noted. Patient speaks in full sentences without needing to catch her breath. HEENT: Normocephalic atraumatic. Pupils are equally round reactive to light. Extraocular muscles are intact. Conjunctivae are moist without any icterus noted. Moist mucous membranes. Cardiovascular: Heart is regular rate and rhythm. Lungs: Clear to auscultation bilaterally. Abdomen: Soft and nontender nondistended with normal bowel sounds. No guarding or rebound. No masses or organomegaly appreciated. Extremities: Bilateral lower extremities are without edema. Skin: Well perfused without any obvious rashes. Const: Vital Signs, click to edit/add: Vital Signs - 24 hr 12/20/23 16:46 12/20/23 19:43 Temperature 97.9 F Pulse Rate [Pulse Oximeter] 82 78 Respiratory Rate 18 18 Blood Pressure [Ri t Upper Arm] 120/77 120/90 H Pulse Oximetry 99 100 Oxygen Delivery Me thod Room Air Room Air Course Course ED Course: CBC is normal. UA shows 2+ blood but 0-2 RBCs. Ultrasound shows a healthy intrauterine without abnormalities. HCG it just above 31,000, consistent with her estimated gestational age. Chlamydia gonorrhea testing pending at this time. Vital Signs Vital signs: Initial Vital Signs Temperature 97.9 F 12/20/23 16:46 Temperature Source Temporal Artery Scan 12/20/23 16:46 Pulse Rate 82 12/20/23 16:46 Respiratory Rate 18 12/20/23 16:46 Blood Pressure 120/77 12/20/23 16:46 Blood Pressure Mean 91 12/20/23 16:46 Blood Pressure Position Sitting 12/20/23 16:46 Pulse Oximetry 99 12/20/23 16:46 Oxygen Delivery Method Room Air 12/20/23 16:46 Vital Signs Temperature 97.9 F 12/20/23 16:46 Pulse Rate 82 12/20/23 16:46 Respiratory Rate 18 12/20/23 16:46 Blood Pressure 120/77 12/20/23 16:46 Pulse Oximetry 99 12/20/23 16:46 Oxygen Delivery Method Room Air 12/20/23 16:46 Temperature 97.9 F 12/20/23 16:46 Pulse Rate 78 12/20/23 19:43 Respiratory Rate 18 12/20/23 19:43 Blood Pressure 120/90 H 12/20/23 19:43 Pulse Oximetry 100 12/20/23 19:43 Oxygen Delivery Method Room Air 12/20/23 19:43 Medical Decision Making MDM Narrative Medical decision making narrative: 28-year-old female at 6-7 weeks gestation with cramping. Patient will follow-up with her OB as scheduled we discussed reasons to return to the ER. Lab Data Lab results reviewed: Yes I reviewed the patient's lab results Labs: Lab Results 12/20/23 12/20/23 Range/Units 18:50 18:56 WBC 9.15 (4.50-11.00) K/uL RBC 4.60 (4.00-5.20) m/uL Hgb 14.0 (12.0-16.0) gm/dL Hct 41.1 (33.0-51.0) % MCV 89 (80-100) fL MCH 30 (26-34) pg MCHC 34 (32-36) gm/dL RDW Coeff of Moises 12.4 (11.5-15.5) % Plt Count 268 (140-440) K/uL Neut % (Auto) 60.3 (42.0-72.0) % Lymph % (Auto) 27.5 (20-44) % [place] % (Auto) 10.7 (0.0-11.0) % Eos % (Auto) 0.9 (0.0-7.0) % Baso % (Auto) 0.5 (0.0-3.0) % Neut # (Auto) 5.51 (1.7-7.0) K/uL Lymph # (Auto) 2.52 (0.90-2.90) K/uL [place] # (Auto) 1.00 H (0.00-0.90) K/UL Eos # (Auto) 0.08 (0.00-0.50) K/uL Baso # (Auto) 0.05 (0.00-0.30) K/uL Abs Immat Gran (auto) 0.01 (0.00-0.30) K/uL Imm/Tot Granulo (auto) 0.1 % HCG, Quant 22964.00 mIU/mL Urine Color Yellow (Yellow) Urine Appearance Clear (Clear) Urine pH 5.5 (5.0-8.5) Ur Specific [place] 1.025 (1.000-1.030) Urine Protein Negative (Negative) Urine Glucose (UA) Negative (Negative) Urine Ketones Negative (Negative) Urine Blood 2+ A (Negative) Urine Nitrite Negative (Negative) Urine Bilirubin Negative (Negative) Urine Urobilinogen 0.2 (0.2-1.0) Ur Leukocyte Esterase Negative (Negative) Urine RBC 0-2 (0-2) Urine WBC 0-2 (0-5) Ur Squamous Epith Cells Few (None-Few) Urine Bacteria Few A (None) Imaging Data US - abdomen: Attestation: I have reviewed the pertinent imaging results. Radiologist's impression: Ultrasound OB pelvis transvaginal. Real-time naqvi-scale imaging of the pelvis was performed. COMPARISON: None. FINDINGS: Intrauterine gestation: Single. heart activity (bpm): 131. [place]-rump length: 0.4 cm. Estimated ultrasound age: 6 weeks 1 day. SEVERIANO by ultrasound: August 13, 2024. Yolk sac: Normal. Perigestational hemorrhage: None. Ovaries and adnexa: Unremarkable. Suspicious pelvic fluid collections: None. IMPRESSION: Single viable intrauterine . No abnormalities seen. Discharge Plan Discharge Clinical Impression: Abdominal cramping affecting Patient Disposition: Home, Self-Care Condition: Stable Additional Instructions: Your blood work and ultrasound look normal today. Estimated gestational age of 6 weeks and 1 day. Recommend you follow-up with your OBGYN as scheduled. Recommend you increase your daily water intake. Return to the ER if your bleeding increases to the point where you are soaking a pad every hour. Prescriptions: No Action Follow Up/Referrals: Provider,Not a Local [Primary Care Provider] - Stand Alone Forms: [employer] Info Instructions
[2023-12-20 19:05] LABS: Basophils Absolute Auto 0.05 K/uL (0.00-0.30); Basophils Percent Auto 0.5 % (0.0-3.0); Eosinophils Absolute Auto 0.08 K/uL (0.00-0.50); Eosinophils Percent Auto 0.9 % (0.0-7.0); Hematocrit 41.1 % (33.0-51.0); Immature Granulocytes Abs Auto 0.01 K/uL (0.00-0.30); Immature Granulocytes Pct Auto 0.1 %; Lymphocytes Absolute Auto 2.52 K/uL (0.90-2.90); Lymphocytes Percent Auto 27.5 % (20-44); Mean Corpuscular HGB Conc 34 gm/dL (32-36); Mean Corpuscular Hemoglobin 30 pg (26-34); Mean Corpuscular Volume 89 fL (80-100); Monocytes Percent Auto 10.7 % (0.0-11.0); Neutrophils Absolute Auto 5.51 K/uL (1.7-7.0); Neutrophils Percent Auto 60.3 % (42.0-72.0); Platelet Count* 268 K/uL (140-440); RDW Coefficient of Variation % 12.4 % (11.5-15.5); White Blood Count* 9.15 K/uL (4.50-11.00)
[2023-12-20 19:08] LABS: Slide Review Reflex No
[2023-12-20 19:11] LABS: Appearance Urine Clear (Clear); Bilirubin Urine Negative (Negative); Blood Urine 2+ (Negative); Color Urine Yellow (Yellow); Glucose Urine Negative (Negative); Ketones Urine Negative (Negative); Leukocyte Esterase Urine Negative (Negative); Nitrite Urine Negative (Negative); Protein Urine Negative (Negative); Specific Gravity Urine 1.025 (1.000-1.030); Urobilinogen Urine 0.2 (0.2-1.0); pH Urine 5.5 (5.0-8.5)
[2023-12-20 19:24] LABS: Bacteria Urine Few; RBC Urine 0-2 (0-2); Squamous Epithelial Cell Urine Few (None-Few); WBC Urine 0-2 (0-5)
[2023-12-20 19:43] VITALS: BP 120/90; PULSE 78; RESP 18; O2SAT 100
[2023-12-20 20:48] LABS: Chlamydia DNA Amplified* NOT DETECTED (No Detected); GC DNA Amplified* NOT DETECTED (No Detected)
== END 2023-12-20 20:23 | disposition home or self-care (01) ==
PROVIDERS: Emergency Provider Family Medicine
DX: O26.891 Other specified pregnancy related conditions, first trimester (principal); R10.2 Pelvic and perineal pain; Z3A.01 Less than 8 weeks gestation of pregnancy
CPT/HCPCS: 36415; 76817; 81001; 84702; 85025; 87086; 87491; 87591; 99284

== ENCOUNTER 2024-01-03 14:16 | Outpatient (CLI) | payer MEDICAID, SELFPAY ==
--- OUTSIDE RECORDS SUMMARY | 2024-01-03 14:20 | XMS_ITS | Clinical Summary ---
Author Organization [facility] Address [address] [place] [address] Care Team Providers Care Construction Director Name Role Phone Unavailable Primary Care Provider Unavailabl e Source Comments Patient records contain information from all sites at [facility]. For routine questions regarding patient records, call [phone] during business hours, M-F 8:00 AM - 5:00 PM Central Time. 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
--- OUTSIDE RECORDS SUMMARY | 2024-01-03 14:20 | XMS_ITS | Clinical Summary ---
Author Organization [facility] Address [place], [place] [address] Care Team Providers Care Real Estate Rep Name Role Phone Provider, Non-Excellian Primary Care Provider Un available Yelena Regalado Unavailable [phone] Allergies Active Allergy Reactions Criticality Noted Date [...] Procedure Name Priority Date/Time Associated Diagnosis Comments LINEMARKER THIN PREP PAP SCREEN IMAGED Routine 08/01/2021 12:00 PM CDT from Last 3 Months or Most Recently Relevant to Health Maintenance Results * LINEMARKER THIN PREP PAP SCREEN IMAGED (08/01/2021 12:00 PM CDT) Case Report Gynecologic Cytology Report ? Case: [id number] ? Authorizing Provider: ??Kenya Maldonado PA-C ?Collected: ? 08/01/2021 1200 ? Ordering Location: ? [facility] ?Received: ?08/06/2021 0737 ? First Screen: ?Arie Jameson ? Specimen: ?LINEMARKER ThinPrep Vial Screening, Cervical/Vaginal ? 08/19/2021 2:12 PM CDT [facility] Risktail [facility] INTERPRETATION/ RESULT NEGATIVE FOR INTRAEPITHELIAL LESION OR MALIGNANCY (NIL) (none) 08/19/2021 2:[address] [facility] IMEN ADEQUACY Satisfactory for evaluation No endocervical component seen in a patient 08/19/2021 2:12 PM CDT [facility] HPV REQUEST HPV if ASCUS 08/19/2021 2:12 PM CDT [facility] Date of LMP 05/30/2021 08/19/2021 2:12 PM CDT [facility] Last Pap Date 12/08/2018 08/19/2021 2:12 PM CDT [facility] Last Pap Result NIL 2:12 PM CDT [facility] Menstrual Status 08/19/2021 2:12 PM CDT [facility] Additional Information 08/19/2021 2:12 PM CDT [facility] Comment: Interpreted at [facility] - [address], [place] [address] Automated Review Successful 08/19/2021 2:12 PM CDT [facility] Comment:Specimen processed s uccessfully by automated transit manager device, ThinPrep Imaging System, [employer] Note The pap test is a [...] and malignant lesions. 08/19/2021 2:12 PM CDT [facility] Other (Cervical/Vagina l) 08/01/2021 12:00 PM CDT 08/06/2021 7:37 AM CDT June Erica ADHIKARI PATHOLOGY/CYTOLOGY [facility]TRAL [facility]ORY [address] [place] [address], from Last 3 Months or Most Recently Relevant to Health Maintenance Care Teams Real Estate Rep Relationship Specialty Start Date End Date Provider, Non-Excellian . PCP - General 03/12/22 Yelena Regalado PA . Physician Automatic Nailing Machine Feeder 03/12/22
--- OUTSIDE RECORDS SUMMARY | 2024-01-03 14:20 | XMS_ITS ---
Author Organization [facility] Address [address] [place] [address] Care Team Providers Care Weigh Box Tender Name Role Phone Unavailable Unavailable Unavailable Surgery Details Not on file Complications Check Surgery Details section. Procedure Estimated Blood Loss Check Surgery Details section. Procedure Findings Check Surgery Details section. Procedure Specimens Taken Check Surgery Details section.
--- OUTSIDE RECORDS SUMMARY | 2024-01-03 14:20 | XMS_ITS | Referral Summary ---
Author Organization [facility] Address [address] [place] [address] Care Team Providers Care Incinerator Plant Laborer Name Role Phone Unavailable Primary Care Provider Unavailabl e Source Comments Patient records contain information from all sites at [facility]. For routine questions regarding patient records, call [phone] during business hours, M-F 8:00 AM - 5:00 PM Central Time. 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
== END 2024-01-03 14:17 | disposition home or self-care (01) ==
PROVIDERS: Visit Provider Physician Assistant
DX: Z34.91 Encounter for supervision of normal pregnancy, unspecified, first trimester (principal); Z3A.09 9 weeks gestation of pregnancy
CPT/HCPCS: 76817; 86592; 86703; 86704; 86706; 86762; 86787; 86803; 86850; 86900; 86901; 87086; 87340; 87491; 87591

== ENCOUNTER 2024-03-29 13:01 | Outpatient (CLI) | payer OTHER, SELFPAY ==
--- NOTE | 2024-03-29 13:00 | CRLHL7_ITS ---
For Patients: As a result of the Century Cures Act, medical imaging exams and procedure reports are released immediately into your electronic medical record. You may view this report before your referring provider. If you have questions, please contact your health care provider. OBSTETRICAL ULTRASOUND, 03/29/2024 CLINICAL HISTORY: Anatomy. SEVERIANO by US: 08/13/2024. GA: 20w, 3d. INDICATION: Anatomy. FINDINGS: position: Vertex. Cervix: Visualized. Technique: Transabdominal. Length of closed cervix: 4.5 cm. Placenta/cord: Anterior. Placenta tip to internal OS: 1.7 cm. Umbilical Cord: 3-vessel cord. Placenta insertion: Central. Amniotic Fluid: 4.9 cm SDP (greater than/equal to: 2- less than 8 cm). FINDINGS: Low-lying placental edge is 1.7 cm from the internal os. SURVEY: Observed Structures Calvarium/Spine: Cerebellum: 2.2 cm, 21w 6d. Cisterna Magna: 5.9 mm. Nuchal Fold: 4.2 mm. Lateral Ventricle: 5.2 mm. CSP: Yes. Midline Falx: Yes. Choroid Plexus: Yes. Spine: Yes. Abdomen: Stomach: Yes. Abd Cord Insertion: Yes. Urinary Bladder: Yes. Kidneys: Yes. Diaphragm: Yes. Face: Nose/lips: Yes. Orbital view: Yes. Profile: Yes. Limbs: Upper Extremities: No. Lower Extremities: Yes. Hands: No. Feet: Yes. Vascular: Four-Chamber Heart: No. LVOT: Yes. RVOT: No. 3VV: Yes. 3VTV: Yes. BPD: 5.1 cm. 21w 3d, 85.27 percent. HC: 9.0 cm. 21w 2d, 78.0 percent. AC: 16.2 cm. 21w 2d, 71.1 percent. FL: 3.6 cm. 21w 2d, 69.9 percent. FL/AC: 21.95 percent. HC/AC Ratio: 1.17. Heart rate: 165 beats per minute. age by this US: 21w 3d. SEVERIANO by this US: 08/06/2024. EFW: 410.3 g. Weight: 14 oz. Percentile by SEVERIANO: 87.0 percent. IMPRESSION: 1. Single live intrauterine gestation. No gross anomalies visualized however the upper extremities, arms, hands, right ventricular outflow tract, four-chamber heart are poorly seen. 2. Low-lying placenta with placental edge 1.7 cm from the cervical os. Kerry Hernandez M.D. Diagnostic/Breast Radiologist [email or web address] Transcribed: 9:54 a.m. JR/Dictated by: Kerry Hernandez MD @ 03/30/2024 6:06:00 AM (Electronically Signed)
== END 2024-03-29 13:02 | disposition home or self-care (01) ==
LOC: US 13:02
PROVIDERS: Visit Provider Obstetrics & Gynecology
DX: Z34.92 Encounter for supervision of normal pregnancy, unspecified, second trimester (principal); O44.42 Low lying placenta NOS or without hemorrhage, second trimester; Z3A.21 21 weeks gestation of pregnancy
CPT/HCPCS: 76805

== ENCOUNTER 2024-04-06 12:59 | Outpatient (CLI) | payer OTHER, SELFPAY ==
--- NOTE | 2024-04-06 13:00 | CRLHL7_ITS ---
For Patients: As a result of the Century Cures Act, medical imaging exams and procedure reports are released immediately into your electronic medical record. You may view this report before your referring provider. If you have questions, please contact your health care provider. INDICATION: Followup OB anatomy. COMPARISON: Ob ultrasound dated 29 March 2024. FINDINGS: Fetus: Single Presentation: Cephalic. cardiac activity was 154 beats per minute and regular. Cervix: 4.0 cm Amniotic fluid: Adequate with the single deepest pocket = 5.8 cm Placenta: The placenta is located anteriorly and 3.4 cm away from the internal cervical os. Anatomy: No gross abnormalities in the visualized portions of the extremities and the four-chamber view of the heart. The right ventricular outflow tract continues to be not well visualized. Dictated by Yehuda Hernandez MD @ 04/07/2024 11:07:19 AM (Electronically Signed)
== END 2024-04-06 13:00 | disposition home or self-care (01) ==
LOC: US 13:00
PROVIDERS: Visit Provider Obstetrics & Gynecology
DX: O26.892 Other specified pregnancy related conditions, second trimester (principal); R10.2 Pelvic and perineal pain; N89.8 Other specified noninflammatory disorders of vagina; Z3A.21 21 weeks gestation of pregnancy
CPT/HCPCS: 76816; 76817

== ENCOUNTER 2024-04-06 14:57 | Outpatient (CLI) | payer OTHER, SELFPAY | END 2024-04-06 14:58 | disposition home or self-care (01) | LOC: NFLDREF 14:57 | PROVIDERS: Visit Provider Obstetrics & Gynecology | DX: O26.892 Other specified pregnancy related conditions, second trimester (principal); R10.2 Pelvic and perineal pain; N89.8 Other specified noninflammatory disorders of vagina; Z3A.21 21 weeks gestation of pregnancy | CPT/HCPCS: 87086 ==

== ENCOUNTER 2024-05-26 13:04 | Outpatient (CLI) | payer OTHER, SELFPAY | END 2024-05-26 13:05 | disposition home or self-care (01) | LOC: NFLDREF 13:05 | PROVIDERS: Visit Provider Obstetrics & Gynecology | DX: Z34.83 Encounter for supervision of other normal pregnancy, third trimester (principal); Z67.41 Type O blood, Rh negative | CPT/HCPCS: 86592; 86850; J2791 ==

== ENCOUNTER 2024-06-06 14:48 | Outpatient (CLI) | payer OTHER, SELFPAY ==
[2024-06-06 16:45] LABS: Fetal Fibronectin* POSITIVE (Negative)
== END 2024-06-06 14:49 | disposition home or self-care (01) ==
PROVIDERS: Visit Provider Obstetrics & Gynecology
DX: O26.893 Other specified pregnancy related conditions, third trimester (principal); N89.8 Other specified noninflammatory disorders of vagina; R10.2 Pelvic and perineal pain; Z3A.30 30 weeks gestation of pregnancy
CPT/HCPCS: 84112; 87086

== ENCOUNTER 2024-06-17 19:15 | Outpatient (CLI) | payer OTHER, SELFPAY ==
[2024-06-17 19:35] VITALS: BP 126/70; PULSE 78; TEMP 36.5
[2024-06-17 19:36] VITALS: PULSE 77; O2SAT 99
--- NOTE | 2024-06-17 20:22 | PC.OBNST ---
NST Note NST Note Start: 06/17/24 19:20 Freq: ONCE Status: Active Protocol: Document 06/17/24 20:20 TISH (Rec: 06/17/24 20:22 [email or web address] [id number]) NST Note 3 Para (# of births) 2 EDC 08/13/24 Gestational Age In Weeks & Days 31 Weeks & 6 Days Patient Presented with Complaint(s) of Other If Observation after an injury, describe fall with no abdominal trauma Reactive Yes Appropriate for Gestational Age Yes GARLAND Martinez RNC Date 06/17/24 Reactive Yes Appropriate for Gestational Age Yes GARLAND Wagner RN Date 06/17/24 OB NST charge Yes Complete NST Note via Write Note Yes The provider's electronic signature indicates the NST is reactive/appropriate for gestational age. *Note to provider: If an addendum is required, open the patient's chart and click on the note under the Nurse/Allied Health tab.
--- NOTE | 2024-07-05 17:53 | PC.OBNST ---
NST Note NST Note Start: 06/17/24 19:20 Freq: ONCE Status: Complete Protocol: Document 06/17/24 20:20 TISH (Rec: 06/17/24 20:22 [email or web address] [id number]) NST Note 3 Para (# of births) 2 EDC 08/13/24 Gestational Age In Weeks & Days 31 Weeks & 6 Days Patient Presented with Complaint(s) of Other If Observation after an injury, describe fall with no abdominal trauma Reactive Yes Appropriate for Gestational Age Yes GARLAND Martinez RNC Date 06/17/24 Reactive Yes Appropriate for Gestational Age Yes GARLAND Wagner RN Date 06/17/24 OB NST charge Yes Complete NST Note via Write Note Yes The provider's electronic signature indicates the NST is reactive/appropriate for gestational age. *Note to provider: If an addendum is required, open the patient's chart and click on the note under the Nurse/Allied Health tab.
== END 2024-06-17 20:10 | disposition home or self-care (01) ==
LOC: OB OUT 19:15 → OB 19:16
PROVIDERS: Visit Provider Obstetrics & Gynecology
DX: O36.8130 Decreased fetal movements, third trimester, not applicable or unspecified (principal); Z3A.32 32 weeks gestation of pregnancy
CPT/HCPCS: 59025; G0463

== ENCOUNTER 2024-06-20 13:39 | Outpatient (CLI) | payer OTHER, SELFPAY ==
--- NOTE | 2024-06-20 13:45 | CRLHL7_ITS ---
For Patients: As a result of the Cures Act, medical imaging exams and procedure reports are released immediately into your electronic medical record. You may view this report before your referring provider. If you have questions, please contact your health care provider. SEVERIANO by US: 08/13/2024. GA: 32w, 2d. Single. INDICATION: BMI 35. TECHNIQUE: Transabdominal obstetric imaging was performed. COMPARISON: 04/17/2024, 04/06/2024. CERVIX: Not visualized. POSITIONING: Vertex. AMNIOTIC FLUID: 6.5 cm SDP. PLACENTA: Technique: Transabdominal. PLACENTA POSITION: Anterior. DOPPLER: heart rate: 127 bpm. BPD: 8.0 cm. 32w 1d, 38 percent. HC: 30.7 cm. 34w 1d, 65 percent. AC: 29.7 cm. 33w 5d, 85 percent. FL: 6.0 cm. 31w 3d, 16 percent. FL/AC: 20.32 percent. HC/AC Ratio: 1.03. age by this US: 32w 6d. SEVERIANO by this US: 08/09/2024. EFW: 2078 g. Weight: 4 lbs, 9 oz. Percentile by SEVERIANO: 60 percent. IMPRESSION: 1. Single living intrauterine with sonographic gestational age 32 weeks 6 days and sonographic due date 08/09/2024. Good correlation with dates. 2. Estimated weight 60th percentile. Abdominal circumference 85th percentile. David Gonsalves M.D. Diagnostic Radiologist [email or web address] JG/matthias / bM/Dictated by: David Gonsalves MD @ 06/20/2024 3:51:00 PM (Electronically Signed)
== END 2024-06-20 13:40 | disposition home or self-care (01) ==
LOC: US 13:40
PROVIDERS: Visit Provider Obstetrics & Gynecology
DX: Z34.93 Encounter for supervision of normal pregnancy, unspecified, third trimester (principal); Z3A.32 32 weeks gestation of pregnancy
CPT/HCPCS: 76816

== ENCOUNTER 2024-07-18 13:43 | Outpatient (CLI) | payer OTHER, SELFPAY ==
--- NOTE | 2024-07-18 13:45 | CRLHL7_ITS ---
For Patients: As a result of the Cures Act, medical imaging exams and procedure reports are released immediately into your electronic medical record. You may view this report before your referring provider. If you have questions, please contact your health care provider. OBSTETRICAL ULTRASOUND ???BIOPHYSICAL PROFILE, 07/18/2024 INDICATION: Obesity. CLINICAL HISTORY: SEVERIANO by US: 08/13/2024 Gestational Age: 36 weeks 2 days COMPARISON: 06/20/2024, 04/17/2024, 04/06/2024 TECHNIQUE: Real-time naqvi-scale transabdominal imaging of the fetus was performed. FINDINGS: Fetus: Single Cervix: Not visualized positioning: Vertex Amniotic Fluid: 2.4 cm SDP BIOPHYSICAL PROFILE: Gross body movements: 2 tone: 2 Respiratory activity: 2 Amniotic fluid SDP: 2 Total score: 8 Placenta technique: Transabdominal Placenta position: Anterior heart rate: 154 bpm IMPRESSION: 1. Biophysical profile score is 8/8. Note is made that gross body movements were mostly absent until the very end of the study. 2. Amniotic fluid appears to be low. Single deepest pocket is 2.4 cm. CHAZ is not determined, but it does appear that the overall fluid level appears decreased. DAVID MONIQUE M.D. Diagnostic Radiologist [email or web address] Transcribed: 3:[address]/Dictated by: David Monique MD @ 07/18/2024 2:42:00 PM (Electronically Signed)
== END 2024-07-18 13:44 | disposition home or self-care (01) ==
PROVIDERS: Visit Provider Obstetrics & Gynecology
DX: O99.213 Obesity complicating pregnancy, third trimester (principal); Z3A.36 36 weeks gestation of pregnancy
CPT/HCPCS: 76819; 87081; 87653

== ENCOUNTER 2024-07-18 17:22 | Inpatient (IN) | payer OTHER, SELFPAY ==
[2024-07-18] VITALS (10 sets, daily range): BP systolic 125–134; BP diastolic 65–77; PULSE 69–91; RESP 14–18; TEMP 36.3–36.8; O2SAT 94–96; BMI 37.5
[2024-07-18 18:30] LABS: Basophils Absolute Auto 0.03 K/uL (0.00-0.30); Basophils Percent Auto 0.5 % (0.0-3.0); Eosinophils Absolute Auto 0.03 K/uL (0.00-0.50); Eosinophils Percent Auto 0.5 % (0.0-7.0); Hemoglobin* 12.9 gm/dL (12.0-16.0); Immature Granulocytes Abs Auto 0.03 K/uL (0.00-0.30); Immature Granulocytes Pct Auto 0.5 %; Lymphocytes Percent Auto 19.9 % (20-44); Mean Corpuscular HGB Conc 35 gm/dL (32-36); Mean Corpuscular Hemoglobin 32 pg (26-34); Mean Corpuscular Volume 91 fL (80-100); Neutrophils Absolute Auto 3.96 K/uL (1.7-7.0); Neutrophils Percent Auto 63.6 % (42.0-72.0); Platelet Count* 221 K/uL (140-440); RDW Coefficient of Variation % 12.6 % (11.5-15.5); Red Blood Count 4.07 m/uL (4.00-5.20); White Blood Count* 6.22 K/uL (4.50-11.00)
[2024-07-18 18:31] LABS: Slide Review Reflex No
[2024-07-18] MEDS: LACTATED RINGERS 1000 ML 1,000 ML 125 ML IV (18:36)
[2024-07-18] MEDS: miSOPROStoL 25 MCG/0.25 TABLET PO ×3 (18:44→22:56)
--- NOTE | 2024-07-18 19:04 | W.PM.LDBA ---
Subjective History of Present Illness Time Seen by Provider: 19:04 Date Seen: 07/18/24 Narrative: Patient is being admitted to Labor and Delivery for IOL after PPROM at an unknown date (possibly yesterday). She is a 28 year old at 36 & 2/7weeks gestation. Her full history and physical was dictated by Dr. Avalos on 07/18/2024. Please see this for details. Denies contractions. Reports normal movement. Specific Issues/Plans Partner: Morgan. 2 boys: Lico and Naveed Baby: Boy! Adria H&P:CGM 07/18/24 # Low lying anterior placenta on anatomy scan - Resolved 04/06/24 # BMI 35 Hemoglobin A1c: 5% Growth ultrasound at 32 weeks: EFW at 60%ile, AC 85%ile. testing starting at 37 weeks: Form scanned # asthma, currently on no medication # Rh-negative Fetus is Rh + on [place] testing RhoGAM:05/26/24 # non-immune to Hep B # Vaginal and vulvar varicosities [place]: Low risk, consistent with male sex, Rh positive Imagin03/29/24: anatomy. 04/17/24: MFM: EFW 90%, AC 85%, MVP 5.9 cm, normal anatomy. Recommend growth ultrasound at 32 weeks and weekly testing starting at 37 weeks. 06/20: Growth - EFW 2078g at 60%ile, AC 85%ile. MVP 6.5cm. Vertex. Vaccinations: Covid: Declined Flu: 01/03/2024 Rhogam: 05/26/24 Tdap: 06/20/24 RSV: NA 32 week mental health: 06/20/24 Last pap: 08/01/2021 OB - Problem Based A/P Additional Plan (1) premature rupture of membranes (PPROM) with onset of labor within 24 hours of rupture in third trimester, antepartum: Status: Acute Plan 1. Admit for induction of labor. 2. Oral cytotec for cervical ripening, maximum of 6 doses followed by pitocin. 3. GBS status unknown, PCN allergy, GBS collected in the office today. Vancomycin for prophylaxis. 4. Dr. Jerome to assume care at 7am on 07/19/24. OB Exam Physical Exam Vital signs: Temp Pulse Resp BP Pulse Ox 98.2 F 86 18 125/65 96 05/13/25 17:40 07/18/24 17:39 07/18/24 17:40 07/18/24 17:39 07/18/24 17:36 Narrative: General: Pleasant, well-groomed women. No acute distress. Vital Signs: see her EMR Heart: RRR w/o gallop, rub or murmur. Chest: CTA Bilaterally. Abdomen: Gravid, NT EFM: Baseline 130bpm. Accelerations: Present. Decelerations: Absent. Moderate variability. Reactive. Category 1. TOCO: Q7-[address] Avalos: 1/50%/-3 Extremities: No pain or edema.
[2024-07-19] VITALS (136 sets, daily range): BP systolic 89–164; BP diastolic 50–87; PULSE 57–142; RESP 14–20; TEMP 36.4–36.9; O2SAT 87–100
[2024-07-19] MEDS: MORPHINE 10 MG/ML inj IM (01:11)
[2024-07-19] MEDS: hydrOXYzine pamoate 25 MG CAPSULE 100 MG PO (01:11)
[2024-07-19] MEDS: miSOPROStoL 25 MCG/0.25 TABLET PO ×3 (01:42→06:04)
--- NOTE | 2024-07-19 08:24 | P.OBPN_ITS ---
Subjective Time Seen by Provider: 08:26 Date Seen: 07/19/24 Narrative: Tanika is a 28-year-old admitted for induction of labor in the setting of PPROM at 36w3d GA. She has noted some increased discharge and intermittent leaking for about the last 2 days, where AmniSure is positive in clinic yesterday. Wet prep was also notable for yeast, MVP on her routine BPP was 2.4cm (subjectively low appearing fluid throughout) compared to 6.5cm the week prior. Patient was admitted and induction of labor was started overnight, status post Cytotec x6 with last dose at 0600. Patient has noted some intermittent leaking through time, but she is not needing a pad even. She feels cramping related to Cytotec, but nothing that is regular/painful. No vaginal bleeding. Endorses active movement. She is agreeable to a cervical exam this morning, with plan to proceed to AROM of the forebag is appreciated versus membrane sweep prior to Pitocin initiation at 10am. Objective Exam: General: Alert and oriented, no acute distress Psych: Appropriate mood and affect Abdomen: Gravid, nontender. Cephalic by ultrasound yesterday. Cervix: 2/50/-1, small forebag appreciated overlying vertex. Vertex is v ann well applied to cervix, where this was elevated slightly then AROM of forebag was performed with return of small volume clear fluid. NST: Category 1. FHR baseline 130bpm, moderate variability, accelerations present, decelerations absent [place]: Rosa about every 4 minutes Vital Signs: Last Vital Signs Temp 97.9 F 07/19/24 08:07 Pulse 72 07/19/24 07:17 Resp 16 07/19/24 07:17 BP 121/76 07/19/24 07:17 Pulse Ox 96 07/19/24 07:17 Plan Plan: Tanika is a 28yo at 36w3d GA ongoing IOL in the setting of PPROM. She was presumed rupture as of about 07/17 as she noted some increased discharge/leaking since that time, amnisure positive in clinic and MVP of 2.4cm (overall low appearing amniotic fluid) on BPP yesterday. is otherwise complicated by GBS unknown (on vanco due to PCN allergy), rh negative, obesity, GERD. IOL has included cytotec PO x6 doses, where cervix is 2/50/-1. Small forebag felt, s/p amniotomy with return of small volume clear fluid. Continue expectant management until 10am, at which time we will continue IOL with pitocin. Explained that I would recommend active management of her IOL given suspicion for prolonged ROM. She expressed understanding and is in agreement. - s/p amniotomy of forebag, s/p cytotec at 0600. Plan to start pitocin at 1000. - Anticipate next cervical exam 4 hours, sooner as clinically indicated. - GBS unknown, on vancomycin in the setting of risk factors for GBS (prematurity) and penicillin allergy. GBS is pending, will discontinue antibiotics if found to be negative. - Blood type O negative, plan cord blood at time of delivery - Pediatrics to attend delivery in the setting of prematurity
[2024-07-19] MEDS: VANCOMYCIN 2 GM/400 ML 2 GM/400 ML PIGGYBACK IVPB (10:39)
[2024-07-19] MEDS: OXYTOCIN 30 unit/500 ML in NS 30 UNIT/500 ML BAG IVPB (10:45)
--- NOTE | 2024-07-19 12:40 | PM.OBPNL ---
Subjective Time Seen by Provider: 12:40 Date Seen: 07/19/24 Narrative: Tanika is a 28-year-old admitted for induction of labor in the setting of PPROM at 36w3d GA. She has noted some increased discharge and intermittent leaking for about the last 2 days, where AmniSure is positive in clinic yesterday. Wet prep was also notable for yeast, MVP on her routine BPP was 2.4cm (subjectively low appearing fluid throughout) compared to 6.5cm the week prior. Patient was admitted and induction of labor was started overnight, status post Cytotec x6 with last dose at 0600. I ruptured a forebag around 0800 and pitocin was started at 1000. She has had primary category 1 tracing, with periods of category 2 for variable decelerations rarely. Patient is considering epidural, rating her to contractions 7 to 8/10 in severity. She notes her pain is primarily located in her back. Endorses ongoing leakage of fluid. Objective Exam: General: Alert and oriented, no acute distress Psych: Appropriate mood and affect Abdomen: Gravid, nontender. Cephalic by ultrasound yesterday. Cervix: 3/70/-1, small forebag appreciated overlying vertex. Vertex is very well applied to cervix, where this was elevated slightly then AROM of forebag was performed with return of small volume clear fluid. NST: Category 1 at present. About 10 minutes ago there was a period of two variable decelerations. Presently, baseline is 135bpm, moderate variability, 10x10 accelerations present with no decelerations. [place]: Rosa about every 2-5 minutes per [place] Vital Signs: Last Vital Signs Temp 97.5 F L 07/19/24 12:21 Pulse 67 07/19/24 10:36 Resp 16 07/19/24 10:36 BP 119/73 07/19/24 10:36 Pulse Ox 96 07/19/24 07:17 Plan Plan: Tanika is a 28yo at 36w3d GA ongoing IOL in the setting of PPROM. She was presumed rupture as of about 07/17 as she noted some increased discharge/leaking since that time, amnisure positive in clinic and MVP of 2.4cm (overall low appearing amniotic fluid) on BPP yesterday. is otherwise complicated by GBS unknown (on vanco due to PCN allergy), rh negative, obesity, GERD. IOL has included cytotec PO x6 doses, rupture of forebag at 0800 and pitocin titration since 1000. She is 3/70/-1, requesting epidural as pain is rated a 7-8 out of 10. - Notify anesthesia of patient request for epidural - Continue pitocin titration per FHR and toco data, currently at 6mu/min - Anticipate next cervical exam 4 hours, sooner as clinically indicated. - GBS unknown, on vancomycin in the setting of risk factors for GBS (prematurity) and penicillin allergy. GBS is pending, will discontinue antibiotics if found to be negative. - Blood type O negative, plan cord blood at time of delivery - Pediatrics to attend delivery in the setting of prematurity
[2024-07-19] MEDS: LIDOCAINE 2% (PF) 5 ML VIAL EPIDURAL (12:52)
[2024-07-19] MEDS: ROPIVACAINE 0.2% 100 ml 100 ML 12 MG EPIDURAL (12:52)
[2024-07-19] MEDS: fentaNYL 100 MCG/2 ML inj EPIDURAL (13:00)
--- NOTE | 2024-07-19 14:06 | P.ANBPRC_ITS ---
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 Marital status: . Baptism/cultural needs: no. Chemical or radiation exposure: no. Pre- tobacco use: no. Pre- alcohol use: Yes, social. Current tobacco use: no. Current alcohol use: no. Recreational drug use: no. Dietary restrictions: no. Blood transfusion acceptable in an emergency: yes. PSYCHOSOCIAL HISTORY: History of depression or currently depressed: Denies. Current or past physical, emotional, or sexual mistreatment: no. Problems that will make it hard to make it to appointments: no. What is your current living situation?: I presently have a place to live Problems where you live: inadequate lighting and no known problems In the past 12 months, utilities in danger of being shut off: no In past 12 months, lack of transportation kept you from medical appts, meetings, work, or getting things needed for daily living: no In the past 12 mos, have been you worried that your food would run out before you had money to buy more?: never true In the past 12 mos, the food you bought just didn't last and you didn't have money to buy more?: never true Smoking Status: Never smoker Do you use any of these nicotine containing products: None How often do you have a drink containing alcohol: never How often do you have six or more drinks on one occasion: Never AUDIT-C Alcohol total score: 0 Non-prescribed substance use: denies use How often does anyone, including family, friends and others, physically hurt you : never How often does anyone, including family, friends and others, insult or talk down to you: never How often does anyone, including family, friends and others, threaten you with harm: never How often does anyone, including family, friends and others, scream or curse at you: never service: No Health Related Social Needs: Inadequate housing (Z59.1) Meds Home Medications and Allergies Home Medications ?Medication ?Instructions ?Recorded ?Confirmed ?Type 12/20/23 07/18/24 History omeprazole 40 mg capsule,delayed 40 mg PO DAILY #90 caps 07/10/24 07/18/24 Rx release Allergies Allergy/AdvReac Type Severity Reaction Status Date / Time Penicillins Allergy Mild Rash Verified 07/18/24 14:17 nickel Allergy Unknown Rash Verified 07/18/24 14:17 Results Labs Labs: Laboratory Results - last 24 hr 07/18/24 18:10 WBC 6.22 RBC 4.07 Hgb 12.9 Hct 37.0 MCV 91 MCH 32 MCHC 35 RDW Coeff of Moises 12.6 Plt Count 221 Neut % (Auto) 63.6 Lymph % (Auto) 19.9 L Geary % (Auto) 15.0 H Eos % (Auto) 0.5 Baso % (Auto) 0.5 Neut # (Auto) 3.96 Lymph # (Auto) 1.20 Geary # (Auto) 0.90 Eos # (Auto) 0.03 Baso # (Auto) 0.03 Abs Immat Gran (auto) 0.03 Imm/Tot Granulo (auto) 0.5 Blood Type O Negative Antibody Screen POSITIVE Vital Signs Vital Signs: Last Vital Signs Temp 97.5 F L 07/19/24 12:21 Pulse 68 07/19/24 14:03 Resp 16 07/19/24 10:36 BP 95/54 L 07/19/24 14:03 Pulse Ox 97 07/19/24 14:04 Weight: 105.687 kg Height: 167.64 cm Anesthesia Procedures Epidural Insertion Patient Location: OB Start Time: 12:00 Stop Time: 13:00 Start Date: 07/19/24 Stop Date: 07/19/24 Reason for Block: primary anesthetic Patient Position: sitting Performed By: Jan Crenshaw Preanesthetic Checklist: IV checked, risks and benefits discussed, surgical consent, monitors and equipment checked, pre-op evaluation, timeout performed and anesthesia consent Prep: chlorhexidine gluconate Monitoring: blood pressure monitoring, nuclear monitoring technician, continuous pulse oximetry and heart rate Approach: midline Vertebral Space: lumbar (1-5) Needle Type: Tuohy needle Injection Technique: continuous catheter Needle gauge: 17 Needle Length (cm): 10 cm Needle Insertion Depth (cm): 6 Catheter Gauge: 19 Catheter Type: multi-orifice Catheter at skin depth (cm): 12 Test Dose Result: negative and lidocaine 1.5% with epinephrine 1 to 200,000 Events: other
[2024-07-19] MEDS: LACTATED RINGERS 1000 ML 1,000 ML 125 ML IV (14:26)
[2024-07-19] MEDS: PHENYLEPHRINE 100 MCG/ML SYRINGE IVP (14:45)
--- NOTE | 2024-07-19 16:25 | P.OBPN_ITS ---
Subjective Time Seen by Provider: 15:30 Date Seen: 07/19/24 Narrative: Tanika is a 28-year-old admitted for induction of labor in the setting of PPROM at 36w3d GA. She has noted some increased discharge and intermittent leaking for about the last 2 days, where AmniSure is positive in clinic yesterday. Wet prep was also notable for yeast, MVP on her routine BPP was 2.4cm (subjectively low appearing fluid throughout) compared to 6.5cm the week prior. Patient was admitted and induction of labor was started overnight, status post Cytotec x6, AROM of forebag and pitocin. Patient is noted intermittent pressure, requested exam. Objective Exam: General: Alert and oriented, no acute distress Psych: Appropriate mood and affect Abdomen: Gravid, nontender. Cervix: 4/70/-1. position feels most consistent with OT, though challenging given small degree of dilation. NST: Category 1 at present. Baseline is 130bpm, moderate variability, 10x10 accelerations present with no decelerations. [place]: Rosa every 2-4 minutes Vital Signs: Last Vital Signs Temp 97.9 F 07/19/24 14:32 Pulse 62 07/19/24 16:23 Resp 16 07/19/24 14:32 BP 104/54 L 07/19/24 16:23 Pulse Ox 98 07/19/24 16:22 Plan Plan: Tanika is a 28yo at 36w3d GA ongoing IOL in the setting of PPROM. She was presumed rupture as of about 07/17 as she noted some increased discharge/leaking since that time, amnisure positive in clinic and MVP of 2.4cm (overall low appearing amniotic fluid) on BPP yesterday. is otherwise complicated by GBS unknown (on vanco due to PCN allergy), rh negative, obesity, GERD. IOL has included cytotec PO x6 doses, rupture of forebag at 0800 and pitocin titration since 1000. She is 4/70/-1, s/p epidural placement. - Continue pitocin titration per FHR and toco data, currently at 10mu/min - Anticipate next cervical exam 4 hours, sooner as clinically indicated. - GBS unknown, on vancomycin in the setting of risk factors for GBS (prematurity) and penicillin allergy. GBS is pending, will discontinue antibiotics if found to be negative. - Blood type O negative, plan cord blood at time of delivery - Pediatrics to attend delivery in the setting of prematurity
--- NOTE | 2024-07-19 17:32 | P.OBPN_ITS ---
Subjective Time Seen by Provider: 17:32 Date Seen: 07/19/24 Narrative: Tanika is a 28-year-old admitted for induction of labor in the setting of PPROM at 36w3d GA. She has noted some increased discharge and intermittent leaking for about the last 2 days, where AmniSure is positive in clinic yesterday. Wet prep was also notable for yeast, MVP on her routine BPP was 2.4cm (subjectively low appearing fluid throughout) compared to 6.5cm the week prior. Patient was admitted and induction of labor was started overnight, status post Cytotec x6, AROM of forebag and pitocin. Category 2 FHR tracing for recurrent variable decelerations. Presented to bedside for cervical exam. Objective Exam: General: Alert and oriented, no acute distress Psych: Appropriate mood and affect Abdomen: Gravid, nontender. Cervix: 6/90/0, head is well applied. NST: Category 2 at present. Baseline is 140bpm, moderate variability, recurrent variable decelerations noted with rapid return to baseline. [place]: Rosa every 2-3 minutes Vital Signs: Last Vital Signs Temp 97.9 F 07/19/24 14:32 Pulse 64 07/19/24 17:22 Resp 16 07/19/24 14:32 BP 97/55 L 07/19/24 17:22 Pulse Ox 98 07/19/24 17:28 Plan Plan: Tanika is a 28yo at 36w3d GA ongoing IOL in the setting of PPROM. She was presumed rupture as of about 07/17 as she noted some increased discharge/leaking since that time, amnisure positive in clinic and MVP of 2.4cm (overall low appearing amniotic fluid) on BPP yesterday. is otherwise complicated by GBS unknown (on vanco due to PCN allergy), rh negative, obesity, GERD. IOL has included cytotec PO x6 doses, rupture of forebag at 0800 and pitocin titration since 1000. She is 6/90/0, s/p epidural placement. - Persistent category 2 FHR tracing for recurrent variable decelerations but rapid return to normal baseline moderate variability noted. - Pitocin was halved from 12 milliunits per minute to 6 in the setting of persistent category 2 heart rate tracing. - If recurrent variables persist, next step would be to start annual infusion or discontinue Pitocin - Patient has never progressed into active phase of labor, hopeful for rapid cervical change. Plan to reassess cervix in 2 hours, sooner as clinically indicated. - GBS unknown, on vancomycin in the setting of risk factors for GBS (prematurity) and penicillin allergy. GBS is pending, will discontinue antibiotics if found to be negative. - Blood type O negative, plan cord blood at time of delivery - Pediatrics to attend delivery in the setting of prematurity
--- NOTE | 2024-07-19 18:40 | W.PM.VAGD1_ITS ---
Procedure Delivery date: 07/19/24 Procedure Done: Global Procedure Details: Normal spontaneous vaginal delivery Minor vaginal laceration repair Events: Labor Induction, Premature Rupture of Membrane, Prolonged Rupture of Membrane and Other (PPROM, Obesity) Delivery augmentation: rupture of membranes (AROM of forebag) and pitocin Delivery monitor: external FHT Route of delivery: Laceration description: Vaginal - 1st Degree Delivery repair: Vicryl Estimated blood loss (mL): 150 Anesthesia type: Epidural Disposition: floor Complications: None Narrative: Tanika is a 28 yo at 36w3d GA admitted for IOL in the setting of PPROM. is complicated by suspected prolonged rupture of membranes, where patient presented to clinic on 07/18 citing increased discharge versus leaking where she had a positive AmniSure and yeast on wet prep. BPP was 8/8, subjectively low appearing fluid with MVP of 2.4 cm. was otherwise complicated by obesity and asthma. heart tones on admission were category 1. Her labor was induced with oral Cytotec x6 and augmented with AROM of forebag and Pitocin. Epidural was utilized for pain management. Status of bag of rome: PPROM suspected as of 06/17 but rupture of forebag intrapartum at 0800 on 07/19. heart tones during active labor were category 1 and 2. She was GBS unknown, thus treated with IV vancomycin due to a severe penicillin allergy. She was complete at 1737 and started pushing at 1745. She made excellent descent throughout the second stage of labor, and had a normal spontaneous vaginal delivery at 1752. heart tones during second stage of labor were category 2 for recurrent variable decelerations, with rapid return to normal baseline with moderate variability. Baby delivered OA, restituted GUILHERME and the anterior and posterior shoulders delivered without difficulty. Nuchal cord: Present around the neck x1, delivered through, and wrapped around an arm. was noted have good tone but was making minimal respiratory effort despite stimulation, where cord was clamped and cut at about 20 seconds of life. Active management of the third stage occurred with IV pitocin and gentle cord traction and the placenta delivered spontaneous and intact at 1756. Cord gases sent: no, due to 5 minute of 9 Cord blood sent for infant ABO: yes details: - Liveborn male fetus at 1752 - weight pending at time of documentation - APGARs were 6 and 9 at 1 and 5 minutes respectively. did require CPAP after delivery, suspected to be due to prematurity and possibly in the setting of prolonged PPROM. Of note, there was no clinical evidence of chorioamnionitis intrapartum including maternal fever, fundal tenderness nor tachycardia. Please see PREPARED FOODS PRODUCTION TEAM MEMBER note for complete details resuscitation. Perineum and vagina were inspected, and the following lacerations were noted: Minor vaginal laceration, bleeding where a single [id number] with 3-0 Vicryl was applied. Repair was done under existing epidural. Excellent hemostasis noted. Of note, a 1x1cm inclusion cyst is noted at the 6 o'clock position about 2 cm inside the vaginal introitus. I suspect this was reactionary to a previous obstetric laceration. Patient notes she is asymptomatic, this largely palpates mobile and very superficial to the vaginal mucosa but distally there is a thicker stalk. Recommend evaluation in the . For consideration of interval removal, would not recommend proceeding at this time due to risk of bleeding. Excellent hemostasis was noted. The following counts were correct: sponges, needles, instruments. Mother and infant in stable condition following the . Gender: Male presentation: vertex Placental Delivery Description: Spontaneous Cord Description: 3 Vessels, Nuchal Cord, Loose (Delivered through) and Around Body x1
--- NOTE | 2024-07-19 19:01 | P.OBPN_ITS ---
OB - PN:Subj Subjective Time Seen by Provider: 19:03 Date Seen: 07/19/24 Narrative: Tanika is a 28yo immediately s/p at 36w3d GA following IOL for PPROM with prolonged ROM. was otherwise complicated by obesity, GBS unknown, asthma. Tanika has had persistent elevated blood pressures since her delivery. That said, she notes that she has had quite a bit of shaking in her course where there has been question of reliability of her blood pressures. Blood pressure at 1844 was 164/64, representing her for severe range blood pressure but at this time lab was at the bedside drawing preE labs requiring multiple phlebotomists and needle sticks. I noted this is additionally an abnormal blood pressure value due to the very wide pulse pressure. She had a 2nd blood pressure performed 5 minutes later during a lab draw that was up again above 160 systolic - again this was actively when she was having labs drawn. In addition, throughout this time her son has been ongoing resuscitation with PATIENT REGISTRATION MANAGER including CPAP. At present to the bedside to provide an update. Explained why I recommended labs to assess for preeclampsia given her persistent elevated BPs in the period. Patient notes no history of elevated blood pressures in her . Looking back, she did have 1 mild range blood pressure when she was in the emergency department for pain when she was 7 weeks . She has otherwise been entirely normotensive throughout her and intrapartum course. She denies headache, vision changes or right upper quadrant pain. Encouraged Tanika and requested nurses to prompt her to try to rest for 5 minutes prior to BP checks in order to have a more reliable blood pressure on recheck. If her blood pressure is >160/110, I explained that this would meet criteria for preeclampsia with severe features as it would necessitate treatment with a short-acting antihypertensive medication. That said, I am hopeful that it will not be in the severe range as I do suspect that most likely etiology behind her abnormally elevated blood pressures with wide pulse pressure and several contributing factors ( shaking, lab draws during BP checks, ongoing resuscitation of ). If she did meet the criteria for preeclampsia with severe features, recommend initiation of magnesium sulfate for 24 hours. Patient expressed understanding and was agreeable to plan. She had her next blood pressure completed after 5 minutes of rest, which was normal at 120/58. As such, decision was made to attributes her severe range blood pressures to be erroneously due to above factors. Preeclampsia labs are pending. Certainly, if she has persistent elevated blood pressure she could meet criteria for hypertensive disorder of . That said, at this time I do not feel she has features consistent with preeclampsia with severe features. OB - PN: Obj Exam Physical Exam: Vital signs: Temp Pulse Resp BP Pulse Ox 98.0 F 69 20 164/70 H 96 07/19/24 18:07 07/19/24 18:52 07/19/24 18:22 07/19/24 18:52 07/19/24 18:59 OB - PN: Obj Data Labs Labs: Laboratory Results - last 24 hr 07/18/24 18:10 Blood Type O Negative Antibody Screen POSITIVE OB - PN: A/P Delivery Assessment and Plan (1) premature rupture of membranes (PPROM) with onset of labor within 24 hours of rupture in third trimester, antepartum: Status: Acute
[2024-07-19 19:02] LABS: Hematocrit 38.1 % (33.0-51.0); Hemoglobin* 12.9 gm/dL (12.0-16.0); Mean Corpuscular HGB Conc 34 gm/dL (32-36); Mean Corpuscular Hemoglobin 32 pg (26-34); Mean Corpuscular Volume 94 fL (80-100); Platelet Count* 188 K/uL (140-440); Red Blood Count 4.06 m/uL (4.00-5.20); White Blood Count* 10.46 K/uL (4.50-11.00)
[2024-07-19 19:13] LABS: Slide Review Reflex No
[2024-07-19 19:14] LABS: Alanine Aminotransferase* 16 U/L (4-35); Aspartate Amino Transferase* 28 U/L (12-35); Blood Urea Nitrogen* 8 mg/dL (5-24); Creatinine* 0.5 mg/dL (0.5-1.5); Est. Creatinine Clearance* 158.22; Estimated Glomerular Filt Rate 132 ml/min
[2024-07-19] MEDS: ACETAMINOPHEN 500 MG TABLET 1000 MG PO (20:37)
[2024-07-20 01:08] VITALS: BP 118/77; PULSE 69; RESP 16; TEMP 36.7; O2SAT 94
[2024-07-20 04:30] VITALS: BP 128/79; PULSE 65; RESP 16; TEMP 36.6; O2SAT 96
[2024-07-20] MEDS: ACETAMINOPHEN 500 MG TABLET 1000 MG PO ×3 (04:30→20:04)
[2024-07-20 06:47] LABS: Hemoglobin* 12.1 gm/dL (12.0-16.0)
--- NOTE | 2024-07-20 07:50 | PM.OBPNVD1 ---
OB - PN:Subj Subjective Date Seen: 07/20/24 Narrative: Tanika is a 28 y.o. G 3 P 3 who was admitted to L & D for PROM. ?She had a NVD that was uncomplicated. The patient feels well. ?The pain is well controlled with current medications. ?She has no new complaints. ?She is breast feeding and reports things are going well. the patient has done well.? Vitals have been stable.? She has remained afebrile.? Has a good appetite, is tolerating a general diet. ?She is voiding without difficulty.? She is passing gas and has not had a bowel movement.? She is ambulating and denies any dizziness.? Has small amount of rubra lochia. She was diagnosed with a yeast infection prior to delivery. MD ordered fluconazole to take today, this was shared with patient. Problems: Denies OB - PN: Obj Exam Physical Exam: Vital signs: Temp Pulse Resp BP Pulse Ox O2 Del Method 97.8 F 65 16 128/79 96 Room Air 07/20/24 04:30 07/20/24 04:30 07/20/24 04:30 07/20/24 04:30 07/20/24 04:30 07/20/24 04:30 Narrative: GENERAL APPEARANCE:? normal affect, alert, no distress MOOD:? appropriate CHEST:? clear to auscultation HEART:? regular rate and rhythm ABDOMEN:? soft, non-tender the uterine fundus is At Umbilicus, Midline and is appropriate for the stage of recovery. PERINEUM:? mild edema of the perineum. EXTREMITIES:? normal and no edema OB - PN: Obj Data Labs Labs: Laboratory Results - last 24 hr 07/19/24 07/20/24 18:51 06:07 WBC 10.46 RBC 4.06 Hgb 12.9 12.1 Hct 38.1 MCV 94 MCH 32 MCHC 34 Plt Count 188 BUN 8 Creatinine 0.5 Estimated Creat Clear 158.22 Estimated GFR 132 AST 28 ALT 16 OB - PN: A/P Delivery Assessment and Plan (1) care and examination immediately after delivery: Status: Acute (2) Lactating mother: Status: Acute (3) Elevated blood pressure reading without diagnosis of hypertension: Status: Acute Plan day: 1 Plan: routine care Comments: , may see if needed? Hgb 12.1. ? Elevated BP without diagnosis of HTN Labs WNL? Anticipate discharge tomorrow
[2024-07-20 08:45] VITALS: BP 126/85; PULSE 58; RESP 16; TEMP 36.4; O2SAT 96
[2024-07-20] MEDS: DOCUSATE SODIUM 100 MG CAPSULE PO (09:42)
[2024-07-20] MEDS: OMEPRAZOLE 20 MG CAPSULE DR 40 MG PO (09:42)
[2024-07-20] MEDS: FLUCONAZOLE 150 MG TABLET PO (10:12)
--- NOTE | 2024-07-20 11:06 | PM.ANPOST ---
Post Anesthesia Note Post Anesthesia Note Patient seen: Inpatient Respiratory Status: adequate Cardiovascular Status: adequate Mental Status: baseline Pain: adequate Temp: baseline Anesthetic awareness: N/A Complications: none Follow care: none
[2024-07-20 12:30] VITALS: BP 122/82; PULSE 58; RESP 16; O2SAT 96
[2024-07-20 14:08] LABS: Rapid Plasma Reagin (RPR) Non Reactive (Non Reactive)
[2024-07-20 17:00] VITALS: BP 126/84; PULSE 58; RESP 17; TEMP 36.4
[2024-07-20 22:49] VITALS: BP 125/83; PULSE 72; RESP 16; TEMP 36.4; O2SAT 96
[2024-07-21] MEDS: ACETAMINOPHEN 500 MG TABLET 1000 MG PO ×2 (06:18→16:24)
[2024-07-21 06:28] VITALS: BP 116/78; PULSE 61; RESP 16; TEMP 36.3; O2SAT 97
[2024-07-21 08:41] VITALS: BP 121/82; PULSE 61; RESP 22; TEMP 36.4; O2SAT 98
[2024-07-21] MEDS: OMEPRAZOLE 20 MG CAPSULE DR 40 MG PO (11:48)
[2024-07-21] MEDS: DOCUSATE SODIUM 100 MG CAPSULE PO (11:49)
[2024-07-21 15:57] VITALS: BP 126/81; PULSE 74; RESP 20; TEMP 36.8; O2SAT 96
--- NOTE | 2024-07-21 15:57 | P.DS_ITS ---
DS: Providers Provider Date Seen: 07/21/24 Date of admission: 07/18/24 17:22 Primary care physician: Not a Local Provider Admitting Clinician: Sheri Diaz MD Attending Physician on discharge: Perla PACE Date of Discharge: 07/21/24 Exam Narrative: Exam Narrative: GENERAL APPEARANCE:? normal affect, alert, no distress MOOD:? appropriate CHEST:? clear to auscultation HEART:? regular rate and rhythm ABDOMEN:? soft, non-tender the uterine fundus is 4cm below Umbilicus, Midline and is appropriate for the stage of recovery. PERINEUM:? deferred. Pt is pumping at time of exam. RN states she will assess her bottom EXTREMITIES:? normal and minimal edema Const: Vital Signs, click to edit/add: Vital Signs - 24 hr 07/20/24 17:00 07/20/24 22:49 07/21/24 06:28 Temperature 97.5 F L 97.5 F L 97.4 F L Pulse Rate [Pulse Oximeter] 58 L 72 61 Respiratory Rate 17 16 16 Blood Pressure [Ri ght Arm] 126/84 125/83 116/78 Pulse Oximetry 96 97 Oxygen Delivery Me thod Room Air Room Air Room Air 07/21/24 08:41 Temperature 97.5 F L Pulse Rate [Pulse Oximeter] 61 Respiratory Rate 22 Blood Pressure [Ri ght Arm] 121/82 Pulse Oximetry 98 Oxygen Delivery Me thod Room Air OB - DS: Summary Hospital Course Hospital Course: Tanika is a 28 y.o. G 3 P 3003 who was admitted to L & D for IOL for PPROM.? She had a NVD that was uncomplicated. GBS was unknown and she was treated with vancomycin x 1 dose due to a severe penicillin allergy. She was doagnosed with GHTN and has been normotensive since 07/19. The patient feels well.? The pain is well controlled with current medications.? She has no new complaints.? She is pumping and feeding and reports things are going well. the patient has done well.? Vitals have been stable.? She has remained afebrile.? Shirley s a good appetite, is tolerating a general diet.? She is voiding without difficulty.? She is passing gas and has had a bowel movement.? She is ambulating and denies any dizziness.? Has small amount of rubra lochia. She is planning POP for prevention.? ?? Problems: none? ?? plan:? Discharge to [facility] as baby will remain inpatient Follow up in 2 weeks and 6 weeks.? , may see if needed? Hgb 12.1. ? GHTN diagnosed by elevated BP greater than 4 hours apart. To check BP 2x daily at home Labs WNL or stable with trending? Discharge home with BP cuff if does not already have one? Follow up in 3-5 days? Call for signs/symptoms of preeclampsia? Peripartum Data Infant delivery method: Vaginal Laceration description: Perineal - 1st Degree (repaired) Episiotomy description: None complications: none [place] Gender: Male Discharge Plan: to stay inpatient longer Status at Discharge Functional status at discharge: independent ambulation Overall status at discharge: patient is progressing back to baseline Time Spent with Patient Time attestation: Total time spent providing and/or coordinating discharge services: Time spent: Less than 30 minutes Discharge Plan Discharge Disposition: Home, Self-Care Date of Admission: 07/18/24 17:22 Attending Provider on Discharge: Ashly Bull Primary Care Provider: Provider,Not a Local Condition: Stable Anticipated Discharge Date/Time: 07/21/24 12:00 Discharge Medications: New docusate sodium 100 mg Capsule 100 mg PO 2XD PRN (Reason: Constipation) Qty: 60 0RF ibuprofen 600 mg Tablet 600 mg PO Q6H PRNQty: 60 0RF Continued Discontinued omeprazole 40 mg capsule,delayed release(DR/EC) 40 mg PO DAILY Qty: 90 0RF Discharge Orders: Discharge Order (Routine); Ordered 07/21/24 Ordered By: Ashly Bull Patient Education: OB High Blood Pressure DC, OB Over the Counter Medication Information, OB Vaginal/Breast Feeding Additional Instructions: Discharge instructions were reviewed with the patient including signs and symptoms of infection and home going medications Nothing vaginally for 6 weeks: no tampons or intercourse Do not drive while taking narcotic pain medication(s) Off Work or School for 6 weeks Symptoms to report to doctor: * Bleeding that saturates more than one pad per hour * Passing clots larger than the size of a golf ball * Pain not relieved by prescribed medication * Fever above 100.4 degrees Fahrenheit * A foul vaginal odor * Difficulty in emotions, mood, and functions * Thoughts of hurting yourself and/or * Painful, reddened area in your breast * Any drainage, redness, or tenderness in your IV/epidural site * Severe headache that doesn't improve after taking medications * Changes in vision, including temporary loss of vision, blurred vision, and/or light sensitivity * Upper abdominal pain (usually under ribs on the right side) * Decrease in urination or painful, frequent urinating * Chest pain * Shortness of breath * Tenderness or pain with redness and/swelling in the calf(s) of your leg [facility] for a BP check?07/24/24 Call with BP greater than or equal to 160/110 2-week visit: discuss infant feeding concerns, review control options and screen for anxiety/depression. 6-week visit for an annual exam. consultation services are available to all mothers and babies for the first year after delivery.? To make an appointment, please call [phone]. Activity Level: Activity as Tolerated and No strenuous activity Discharge Diet: Regular Follow Up Appointments: [facility] [Provider Group] Forms: [employer] Info Instructions
[2024-07-21] MEDS: IBUPROFEN 600 MG TABLET PO (20:19)
== END 2024-07-21 20:30 | disposition home or self-care (01) | DRG 560 ==
PROVIDERS: Obstetrics & Gynecology; Admitting Provider Obstetrics & Gynecology; Visit Provider Obstetrics & Gynecology
DX: O42.113 Preterm premature rupture of membranes, onset of labor more than 24 hours following rupture, third trimester (principal); Z3A.36 36 weeks gestation of pregnancy; Z37.0 Single live birth; O76 Abnormality in fetal heart rate and rhythm complicating labor and delivery; O26.893 Other specified pregnancy related conditions, third trimester; Z67.41 Type O blood, Rh negative; O70.0 First degree perineal laceration during delivery; B37.49 Other urogenital candidiasis; O13.5 Gestational [pregnancy-induced] hypertension without significant proteinuria, complicating the puerperium; N89.8 Other specified noninflammatory disorders of vagina
CPT/HCPCS: 01967; 36415; 59200; 82565; 84450; 84460; 84520; 85018; 85025; 85027; 85461; 86592; 86850; 86870; 86880; 86900; 86901; 88307; A9270; J2270; J2791; J2795; J3010; J3370; J3372; J7030; J7120

== ENCOUNTER 2024-08-30 14:59 | Outpatient (CLI) | payer OTHER, SELFPAY ==
[2024-09-02 08:07] LABS: HPV Source Cervix; HPV, High Risk by TMA Not Detected
== END 2024-08-30 15:00 | disposition home or self-care (01) ==
PROVIDERS: Visit Provider Registered Nurse
DX: Z12.4 Encounter for screening for malignant neoplasm of cervix (principal); Z11.51 Encounter for screening for human papillomavirus (HPV)
CPT/HCPCS: 87624; 87625; 88141; 88142

== ENCOUNTER 2024-12-28 12:02 | Outpatient (CLI) | payer OTHER, SELFPAY | END 2024-12-28 12:03 | disposition home or self-care (01) | LOC: NFLDREF 12:03 | PROVIDERS: PCP Family Medicine; Visit Provider Family Medicine | DX: R51.9 Headache, unspecified (principal) | CPT/HCPCS: 80053 ==